=== PATIENT | male | born 1950 | race Caucasian/White ===

== ENCOUNTER 2018-08-28 08:39 | Inpatient (IN) | payer MEDICARE, OTHER ==
[~2018-08-28] VITALS: Ht 172.7 cm; Wt 75.0 kg
[2018-08-28] VITALS (7 sets, daily range): BP systolic 163–187; BP diastolic 93–114; PULSE 81–131; RESP 17–20; Ht 172.7 cm; Wt 75.0 kg
--- NOTE | 2018-08-28 09:25 | ERD ---
ER Documentation Chief Complaint Chief Complaint had a choking episode now better 02 sat 97% HPI 68-year-old gentleman with a history of chronic encephalopathy presents from board and care after having a choking episode. The patient was apparently eating a pancake prior to arrival. He had a Heimlich maneuver to completely dislodge the patient's pancake. The patient has no complaints currently however the patient's baseline speech difficulties make history extremely limited. The patient arrives with very limited information from boarding care facility. ROS Limited given verbal status Medications Home Meds Reported Medications Hydroxyzine Pamoate* (Hydroxyzine Pamoate*) 50 Mg Capsule, 50 MG PO Q6H PRN for ITCHING, #30 CAP 08/28/18 Albuterol Sulfate* (Ventolin HFA*) 18 Gm Hfa.aer.ad, 2 PUFF INHALATION Q6H PRN for WHEEZING AND SOB, #1 INHALER 08/28/18 Acetaminophen* (Acetaminophen*) 650 Mg Tablet, 650 MG PO Q6H PRN for PAIN AND OR ELEVATED TEMP, #30 TAB 08/28/18 Magnesium Hydroxide* (Milk Of Magnesia*) 400 Mg/5 Ml Oral.susp, 30 ML PO Q24H PRN for CONSTIPATION, ML 08/28/18 Trazodone Hcl* (Trazodone Hcl*) 50 Mg Tablet, 50 MG PO QHS, #30 TAB 08/28/18 Simethicone* (Mylicon* Oral Drop) 40 Mg/0.6 Ml Drops, 30 MG PO Q2HWA PRN for DISTENSION/GAS/BLOATING, EA 08/28/18 Atorvastatin Calcium* (Atorvastatin Calcium*) 20 Mg Tablet, 20 MG PO QHS, #30 TAB 08/28/18 Metformin* (Glucophage*) 500 Mg Tab, 500 MG PO BID, #60 TAB 08/28/18 Aspirin* (Aspirin* EC) 81 Mg Tablet.dr, 81 MG PO DAILY, TAB 08/28/18 Benazepril Hcl* (Benazepril Hcl*) 10 Mg Tablet, 10 MG PO DAILY, #30 TAB HOLD IF SBP<110 OR HR<60 08/28/18 Escitalopram Oxalate* (Escitalopram Oxalate*) 5 Mg Tablet, 5 MG PO DAILY, #30 TAB 08/28/18 Allergies Allergies: Coded Allergies: No Known Allergy (Unverified , 08/28/18) FmHx Family History: No diabetes Physical Exam Vitals Vital Signs Date Temp Pulse Resp B/P (MAP) Pulse Ox O2 O2 Flow FiO2 Time Delivery Rate 08/28/18 85 18 131/72 99 Room Air 13:33 (91) 08/28/18 Nasal 2 10:40 Cannula 08/28/18 97.8 90 18 151/90 95 08:49 (110) Physical Exam General: Patient is alert, interactive with speech difficulties that appear to be at baseline Head: Normocephalic, atraumatic. Eyes: Pupils equally reactive, EOM intact ENT: Moist mucous membranes, no drooling, no stridor, phonating at baseline Neck: Supple, no lymphadenopathy Respiratory: Lungs clear bilaterally, no distress Cardiovascular: RRR, no murmurs, rubs, or gallops Abdominal: Soft, non-tender, non-distended, no peritoneal signs : Deferred MSK: No edema, no unilateral swelling, 5/5 strength Neurologic: Alert and oriented, resting tremor Skin: No rash Psych: Normal mood Result Diagram: 08/28/18 1030 08/28/18 1030 Results 24 hrs Laboratory Tests Test 08/28/18 10:30 08/28/18 11:10 White Blood Count 8.3 10^3/ul Red Blood Count 4.55 10^6/ul Hemoglobin 14.6 g/dl Hematocrit 42.3 % Mean Corpuscular Volume 93.0 fl Mean Corpuscular Hemoglobin 32.1 pg Mean Corpuscular Hemoglobin Concent 34.5 g/dl Red Cell Distribution Width 13.0 % Platelet Count 190 10^3/UL Mean Platelet Volume 9.9 fl Immature Granulocytes % 0.400 % Neutrophils % 74.2 % Lymphocytes % 12.7 % Monocytes % 11.9 % Eosinophils % 0.4 % Basophils % 0.4 % Nucleated Red Blood Cells % 0.0 /100WBC Immature Granulocytes # 0.030 10^3/ul Neutrophils # 6.2 10^3/ul Lymphocytes # 1.1 10^3/ul Monocytes # 1.0 10^3/ul Eosinophils # 0.0 10^3/ul Basophils # 0.0 10^3/ul Nucleated Red Blood Cells # 0.0 10^3/ul Prothrombin Time 13.1 Sec Prothrombin Time Ratio 1.0 INR International Normalized Ratio 0.98 Activated Partial Thromboplast Time 38.8 Sec Sodium Level 137 mmol/L Potassium Level 4.4 mmol/L Chloride Level 102 mmol/L Carbon Dioxide Level 24 mmol/L Anion Gap 11 Blood Urea Nitrogen 25 mg/dl Creatinine 0.98 mg/dl Est Glomerular Filtrat Rate mL/min > 60 mL/min Glucose Level 136 mg/dl Calcium Level 9.8 mg/dl Troponin I 0.621 ng/ml Triglycerides Level 55 mg/dl Cholesterol Level 150 mg/dl LDL Cholesterol, Calculated 94 mg/dl HDL Cholesterol 45 mg/dl Cholesterol/HDL Ratio 3.3 RATIO Hemoglobin A1c 5.5 % Current Medications Medications Dose Sig/Jesse Start Time Status Last (Trade) Ordered Route PRN Stop Time Admin Dose Reason Admin Aspirin 162 mg ONCE ONCE 08/28/18 DC (Aspirin) PO 13:00 08/28/18 13:01 Ondansetron 4 mg ER BRIDGE 08/28/18 HCl (Zofran PRN IV 13:00 Inj) NAUSEA/VOMITI 08/29/18 12:59 NG 650 mg ER BRIDGE 08/28/18 Acetaminophen PRN PO 13:00 (Tylenol .MILD PAIN 08/29/18 12:59 Tab) 1-3 OR TEMP Procedures/MDM EKG, MONITORS, & DIAGNOSTIC IMAGING: CXR IMPRESSION: Mild right basilar linear atelectatic changes. 10 mm nodular opacity in the left lung base. Impacted fracture of the right humeral neck, age indeterminate. Moderate to severe degenerative changes of the left shoulder. Follow-up CT chest is recommended. CT brain: No acute process per radiologist read EKG: I reviewed and interpreted a 12-lead EKG. Rhythm: Normal sinus rhythm ST Changes: No contiguous ST segment elevations T waves: No contiguous T wave inversions Impression: [No evidence of acute cardiac ischemia] LABS: Troponin elevation MEDICAL DECISION MAKING: The patient presents after a witnessed choking episode with complete resolution and dislodgment of airway foreign body. Clinically the patient is well- appearing without signs or symptoms concerning for aspiration. Patient is oxygen saturation 97% and above. The patient has baseline neurologic and speech difficulties which appear to be unchanged. Patient will benefit from observation for 1-2 hours in the emergency room setting. No signs or symptoms concerning for aspiration pneumonitis at this time. No indication for antibiotics. If the patient remained stable safe for discharge would be appropriate. Without respiratory distress, hypoxia the patient can be safely discharged back to [facility] facility. It would be reasonable to do a bedside swallow screen on this patient given his neurologic issues. This appears to be an isolated event however. ER COURSE: * There is interval development in the history. Phone calls were made to the patient's boarding care facility to attempt to find the patient's baseline. After prolonged conversations between my charge nurse, the patient's telephonic nurse case manager and social worker clinical in the facility it appears that the patient was sent with the wrong name. There is very limited identifying information of the patient's neurologic state is such that the patient cannot identify himself. * In the end the history is somewhat more convoluted and the patient may be worse than baseline with potential apnea related to choking. The care facility cannot clearly identify the patient's baseline status. They are additionally having difficulty identifying the patient himself. For this reason, the convoluted presentation the patient is much higher risk and I believe would warrant from further workup including stroke evaluation, inpatient hospitalization and further monitoring. * Our social worker clinical has been involved. The care facility continues to go back and forth and cannot clearly identify this patient. This is a serious issue and further investigation is necessary. community services coordinator is involved. * Troponin is elevated. No chest pain no cardiac ischemia on EKG. Aspirin provided rectally. The patient failed swallow screen. Patient to be admitted for further management. CONSULTATION: [None] DISPOSITION PLAN: Telemetry admission for non-ST elevation myocardial infarction Accepting care team and consultations: I discussed the current laboratory data, diagnostic imaging and emergency care provided. Admitting team: Dr. Griffiths Admitting team indication: Insurance directed Departure Diagnosis: Primary Impression: Non-ST elevation myocardial infarction (NSTEMI) Additional Impressions: Choking episode Encephalopathy chronic Condition: Stable MEDINA BECK MD Aug 28, 2018 09:25
[2018-08-28] MEDS ORDERED: ESCI5TAB10 PO (12:15)
[2018-08-28] MEDS ORDERED: BENA10TA4 PO (12:16)
[2018-08-28] MEDS ORDERED: ASPI-817 PO (12:18)
[2018-08-28] MEDS ORDERED: METF-849 PO (12:19)
[2018-08-28] MEDS ORDERED: ATOR20TA38 PO (12:19)
[2018-08-28] MEDS ORDERED: TRAZ-111 PO (12:21)
[2018-08-28] MEDS ORDERED: SIME40DR PO (12:21)
[2018-08-28] MEDS ORDERED: ACET-2047 PO (12:22)
[2018-08-28] MEDS ORDERED: MAGN400O19 PO (12:22)
[2018-08-28] MEDS ORDERED: ALBU18HF INHALATION (12:23)
[2018-08-28] MEDS ORDERED: HYDR50CA2 PO (12:24)
[2018-08-28] MEDS ORDERED: ASPIRIN 81 MG TAB PO ONE (13:00)
[2018-08-28] MEDS ORDERED: ACETAMINOPHEN 325 MG TAB PO PRN (13:00)
[2018-08-28] MEDS ORDERED: ONDANSETRON 4 MG INJ IV PRN (13:00)
--- NOTE | 2018-08-28 13:55 | HP ---
Date/Time of Note Date/Time of Note DATE: 08/28/18 TIME: 13:48 Assessment/Plan VTE Prophylaxis SCD applied (from Nsg): Yes Pharmacological prophylaxis: heparin Lines/Catheters IV Catheter Type (from Nrsg): Saline Lock Assessment/Plan Hospital Course 68 yo male with schizophrenia and COPD who presents for unclear reasons, seems h dominic was kicked out of his boarding care facility and then had a choking fit for which EMS was called. He is slightly hypoxic with diffuse wheezing on exam suggestive of COPD exacerbation Acute COPD exacerbation awith mild hypoxia: - Will give short coarse of steroids and give bronchodilators Chronic vs acute encephelopathy: - Unclear mental baseline. Presentation could be consistent with methamph etamine perhaps, await U tox - Monitor mental status. Hopefully can provide better history tomorrow NSTEMI: - This seems like a type II CT, no chest pain and EKG is not consistent with acute ischemia - Will trend troponins and check echocardiogram Schizophrenia: - Seroquel 50 mg BID Discharge plan per case management when stable Result Diagram: 08/28/18 1030 08/28/18 1030 Results 24hrs Laboratory Tests Test 08/28/18 10:30 08/28/18 11:10 White Blood Count 8.3 Red Blood Count 4.55 L Hemoglobin 14.6 Hematocrit 42.3 Mean Corpuscular Volume 93.0 Mean Corpuscular Hemoglobin 32.1 Mean Corpuscular Hemoglobin Concent 34.5 Red Cell Distribution Width 13.0 Platelet Count 190 Mean Platelet Volume 9.9 Immature Granulocytes % 0.400 Neutrophils % 74.2 Lymphocytes % 12.7 L Monocytes % 11.9 H Eosinophils % 0.4 Basophils % 0.4 Nucleated Red Blood Cells % 0.0 Immature Granulocytes # 0.030 Neutrophils # 6.2 Lymphocytes # 1.1 Monocytes # 1.0 H Eosinophils # 0.0 Basophils # 0.0 Nucleated Red Blood Cells # 0.0 Prothrombin Time 13.1 Prothrombin Time Ratio 1.0 INR International Normalized Ratio 0.98 Activated Partial Thromboplast Time 38.8 H Sodium Level 137 Potassium Level 4.4 Chloride Level 102 Carbon Dioxide Level 24 Anion Gap 11 Blood Urea Nitrogen 25 H Creatinine 0.98 Est Glomerular Filtrat Rate mL/min > 60 Glucose Level 136 Calcium Level 9.8 Troponin I 0.621 *H Triglycerides Level 55 Cholesterol Level 150 LDL Cholesterol, Calculated 94 HDL Cholesterol 45 Cholesterol/HDL Ratio 3.3 Hemoglobin A1c 5.5 HPI/ROS Admit Date/Time Admit Date/Time Hx of Present Illness 68 yo male with ho schizophrenia and COPD who presents for unclear reasons Patient with dysarthria and very difficult to understand. From what I am able to hear he says he was in a skilled nursing who kicked him out today for taking "his pills" which he says was seroquel. From documentation provided, he was outside of the facility and had a choking fit so EMS was called. The patient de nies chocking and has no chest pain. He does say he feel short of breath from his emphysema ROS Constitutional: no complaints, improved Eyes: no complaints ENT: no complaints Respiratory: no complaints Cardiovascular: no complaints Gastrointestinal: no complaints Genitourinary: no complaints Musculoskeletal: no complaints Skin: no complaints Neurologic: no complaints Endocrine: no complaints Lymphatic: no complaints Psychological: no complaints, nl mood/affect Immunologic: no complaints PMH/Family/Social Past Medical History COPD Medications Current Medications Ondansetron HCl (Zofran Inj) 4 mg ER BRIDGE PRN IV NAUSEA/VOMITING; Start 08/28/18 at 13:00; Stop 08/29/18 at 12:59 Acetaminophen (Tylenol Tab) 650 mg ER BRIDGE PRN PO .MILD PAIN 1-3 OR TEMP; Start 08/28/18 at 13:00; Stop 08/29/18 at 12:59 Coded Allergies: No Known Allergy (Unverified , 08/28/18) Past Surgical History Past Surgical Hx: no surgical history Family History Significant Family History: no pertinent family hx Social History Alcohol Use: none Smoking Status: Unknown if ever smoked Drug Use: none Exam/Review of Systems Vital Signs Vitals Vital Signs Date Temp Pulse Resp B/P (MAP) Pulse Ox O2 O2 Flow FiO2 Time Delivery Rate 08/28/18 85 18 131/72 99 Room Air 13:33 (91) 08/28/18 2 10:40 08/28/18 97.8 08:49 Exam Exam Alert Dysarthric Odd behavior Slightly agitated Tachy, regular Lungs with wheezing bilaterally Neck veins flat Abdomen soft nt nd Ext warm wihtout LASHAWN Leiva MD Aug 28, 2018 13:55
[2018-08-28] MEDS ORDERED: NACL 0.9% 3 ML SYG IV SCH (14:00)
[2018-08-28] MEDS ORDERED: DIAZEPAM 5 MG TAB PO ONE (14:00)
[2018-08-28] MEDS ORDERED: ASPIRIN 300 MG SUPP PR ONE (14:00)
[2018-08-28] MEDS: QUETIAPINE 25 MG TAB NGT SCH ×2 (16:24→22:53)
[2018-08-28] MEDS: predniSONE 20 MG TAB PO SCH (16:25)
--- NOTE | 2018-08-28 17:51 | RADRPT ---
Echocardiogram Report Patient Name: KEITH ARREDONDOPatient ID: [id number] : 1950 (68y 2m)Study Date: 08/28/2018 2:10:35 PM Gender: MAccession #: [id number] Tech: LILIA Location: Ref.Physician: LASHAWN LOPEZ Height(Cm): BSA: Weight(Kg): Quality: GoodAccount #: Procedures: Echocardiographic Report: Transthoracic echocardiogram with complete 2D, M-Mode, and doppler examination. Indications: ACS. Measurements: 2D/M Mode Doppler Measurement Value Normal Range Measurement Value Normal Range LVIDd 2D 4.5 [ 4.2 - 5.8 ] cm MIKEY VTI 2.6 [ 2.0 - 4.0 ] cm2 LVIDs 2D 3.2 [ 2.5 - 4.0 ] cm AV Mean Esdras 0.9 [ 70.0 - 90.0 ] cm/sec LVPWd 2D 1.1 [ 0.6 - 1.0 ] cm AV Mean PG 4.0 [ 2.0 - 4.0 ] mmHg IVSd 2D 1.1 [ 0.6 - 1.0 ] cm AV VTI 22.9 cm EDV 2D 93.9 [ 62.0 - 150.0 ] ml LVOT Mean Esdras 0.6 [ 60.0 - 80.0 ] cm/sec ESV 2D 41.6 [ 21.0 - 61.0 ] ml LVOT Mean PG 2.0 [ 1.0 - 3.0 ] mmHg EF 2D 55.7 [ 52.0 - 72.0 ] percent LVOT Peak Esdras 0.9 [ 70.0 - 110.0 ] cm/sec LVOT Diam 2.1 [ 2.3 - 2.9 ] cm LVOT Peak PG 3.0 [ 2.0 - 6.0 ] mmHg LVOT VTI 17.1 [ 20.0 - 30.0 ] cm MV E Peak Esdras 0.5 [ 60.0 - 130.0 ] cm/sec MV A Peak Esdras 1.0 [ 100.0 - 120.0 ] cm/sec MV E/A 0.6 [ 0.8 - 1.5 ] ratio MV Decel Time 239 [ 104 - 258 ] msec Lat E` Esdras 0.1 [ 10.0 - 15.0 ] cm/sec Lateral E/E` 8.5 [ 1.0 - 2.0 ] ratio Med E` Esdras 0.1 cm/sec MV E/A 0.6 [ 0.8 - 1.5 ] ratio TR Peak Esdras 2.1 [ 100.0 - 280.0 ] cm/sec TR Peak PG 17.0 mmHg PV Peak Esdras 0.6 [ 40.0 - 80.0 ] cm/sec PV Peak PG 2.0 mmHg Findings: Left Ventricle: Normal left ventricular systolic function. Normal left ventricular cavity size. Normal left ventricular wall thickness. Ejection fraction is visually estimated at 55 %. Tissue Doppler/Mitral Doppler indices are consistent with impaired relaxation (Stage I diastolic dysfunction). Right Ventricle: Normal right ventricular size. Normal right ventricular systolic function. Left Atrium: There is mild enlargement of left atrium. Right Atrium: The right atrium is normal in size. Atrial Septum: Normal atrial septum. Mitral Valve: Normal appearance and function of the mitral valve with trace physiologic regurgitation. Aortic Valve: Normal appearance of the aortic valve. No significant aortic stenosis or insufficiency. Tricuspid Valve: Normal appearance and function of the tricuspid valve with trace physiologic regurgitation. Pulmonic Valve: Pulmonic valve not well visualized. No evidence of pulmonic regurgitation. Pericardium: Normal pericardium with no significant pericardial effusion. Aorta: Normal aortic root. IVC: Normal size and normal respiratory collapse consistent with normal right atrial pressure. Conclusions: Normal left ventricular systolic function. Normal left ventricular cavity size. Normal left ventricular wall thickness. Ejection fraction is visually estimated at 55 %. Tissue Doppler/Mitral Doppler indices are consistent with impaired relaxation (Stage I diastolic dysfunction). There is mild enlargement of left atrium. Normal appearance and function of the mitral valve with trace physiologic regurgitation. Normal appearance and function of the tricuspid valve with trace physiologic regurgitation. Electronically Signed By: Andrew Son 2018-08-28 17:50:46 PDT
[2018-08-28] MEDS: ALBUTEROL/IPRATROPIUM (NEB) 3 ML AMP HHN SCH (20:47)
[2018-08-28] MEDS: LORAZEPAM 2 MG INJ IV PRN (23:39)
[2018-08-29] VITALS (12 sets, daily range): BP systolic 143–183; BP diastolic 88–110; PULSE 86–117; RESP 18–20
[2018-08-29] MEDS: ALBUTEROL/IPRATROPIUM (NEB) 3 ML AMP HHN SCH ×6 (01:24→20:28)
[2018-08-29] MEDS: predniSONE 20 MG TAB PO SCH (08:20)
[2018-08-29] MEDS: QUETIAPINE 25 MG TAB NGT SCH (08:20)
[2018-08-29] MEDS: ENOXAPARIN 30 MG/0.3 ML SYG SC SCH (08:21)
[2018-08-29] MEDS ORDERED: ASPIRIN 81 MG TAB PO SCH (09:00)
--- NOTE | 2018-08-29 10:01 | PSY ---
Date/Time of Note Date/Time of Note DATE: 08/29/18 TIME: 09:40 Psychiatric Subjective Eval Subjective Evaluation Chief Complaint: had a choking episode now better 02 sat 97% History of present illness Patient is 68 year male with underlying history of COPD who is currently on the telemetry unit for increased troponin level. On a [id number] evaluation, patient is very agitated he is increasingly anxious states he wants to have a conversation with the TV patient has poor impulse control poor coping skills he gets easily frustrated and irritable. He is very uncooperative and intrusive. Explained risk and benefits of medication the patient is resistive with care, but takes medication Past psychiatric history Long history of mental illness and hospitalization Hospitalization: other Medical history Problems Medical Problems: (1) Choking episode Status: Acute (2) Encephalopathy chronic Status: Acute (3) Non-ST elevation myocardial infarction (NSTEMI) Status: Acute Allergies: Coded Allergies: No Known Allergy (Unverified , 08/28/18) Substance Abuse Substance abuse history: Yes (And states he has tried every street drug on on the face of the heads) Prior substance abuse treatmen: Yes Social History Marital status: single DPA/Conservatorship: No Psychiatric Objective Eval Review of Systems: Review of Systems: Not Applicable Physical Examination: Physical Examination: Not Applicable Appetite: Adequate Energy: Adequate Interest: Adequate Mental Status Examination: Appearance: Poor Hygiene, Disheveled Eye Contact: Fair Psychomotor Activity: Agitated Behavior: Agitated Speech: Slurred AFFECT: Libile Mood: Irritable Though Process: Tangential Thought Content: Hallucinations (Visual hallucinations) Orientation: x3 Insight: Severe Judgement: Severe Attention Span: Distractible Laboratory Results Laboratory Tests Test 08/28/18 10:30 08/28/18 11:10 08/28/18 16:14 08/29/18 05:49 White Blood Count 8.3 10^3/ul 10.0 10^3/ul Red Blood Count 4.55 10^6/ul 4.48 10^6/ul Hemoglobin 14.6 g/dl 14.3 g/dl Hematocrit 42.3 % 42.5 % Mean Corpuscular 93.0 fl 94.9 fl Volume Mean Corpuscular 32.1 pg 31.9 pg Hemoglobin Mean Corpuscular 34.5 g/dl 33.6 g/dl Hemoglobin Concent Red Cell 13.0 % 13.0 % Distribution Width Platelet Count 190 10^3/UL 225 10^3/UL Mean Platelet 9.9 fl 10.3 fl Volume Immature 0.400 % 0.500 % Granulocytes % Neutrophils % 74.2 % 78.5 % Lymphocytes % 12.7 % 12.4 % Monocytes % 11.9 % 8.4 % Eosinophils % 0.4 % 0.0 % Basophils % 0.4 % 0.2 % Nucleated Red 0.0 /100WBC 0.0 /100WBC Blood Cells % Immature 0.030 10^3/ul 0.050 10^3/ul Granulocytes # Neutrophils # 6.2 10^3/ul 7.9 10^3/ul Lymphocytes # 1.1 10^3/ul 1.2 10^3/ul Monocytes # 1.0 10^3/ul 0.8 10^3/ul Eosinophils # 0.0 10^3/ul 0.0 10^3/ul Basophils # 0.0 10^3/ul 0.0 10^3/ul Nucleated Red 0.0 10^3/ul 0.0 10^3/ul Blood Cells # Prothrombin Time 13.1 Sec Prothrombin Time 1.0 Ratio INR International 0.98 Normalized Ratio Activated 38.[address] Time Sodium Level 137 mmol/L 143 mmol/L Potassium Level 4.4 mmol/L 4.1 mmol/L Chloride Level 102 mmol/L 106 mmol/L Carbon Dioxide 24 mmol/L 24 mmol/L Level Anion Gap 11 13 Blood Urea 25 mg/dl 17 mg/dl Nitrogen Creatinine 0.98 mg/dl 0.79 mg/dl Est Glomerular > 60 mL/min > 60 mL/min Filtrat Rate mL/min Glucose Level 136 mg/dl 107 mg/dl Calcium Level 9.8 mg/dl 10.1 mg/dl Troponin I 0.621 ng/ml 0.667 ng/ml 0.603 ng/ml Triglycerides 55 mg/dl Level Cholesterol Level 150 mg/dl LDL Cholesterol, 94 mg/dl Calculated HDL Cholesterol 45 mg/dl Cholesterol/HDL 3.3 RATIO Ratio Hemoglobin A1c 5.5 % 5.5 % Total Bilirubin 0.5 mg/dl Direct Bilirubin 0.00 mg/dl Indirect Bilirubin 0.5 mg/dl Aspartate Amino 28 IU/L Transf (AST/SGOT) Alanine 22 IU/L Aminotransferase ( ALT/SGPT) Alkaline 109 IU/L Phosphatase Total Protein 7.4 g/dl Albumin 4.1 g/dl Globulin 3.30 g/dl Albumin/Globulin 1.24 Ratio Assessment and Plan Assessment/Diagnosis Diagnosis Schizophrenia unspecified Recommendation/Plan Medication Management Seroquel 50 mg daily and 100 at bedtime Multiple antipsychotics: No Discharge Disposition: Other Legal Status: Voluntary (Patient does not meet criteria for 5150 hold. He is currently taking medications) AUBREY PAUL NP Aug 29, 2018 09:54
[2018-08-29] MEDS: QUETIAPINE 25 MG TAB PO SCH (10:24)
[2018-08-29] MEDS: LORAZEPAM 2 MG INJ IV PRN (16:02)
--- NOTE | 2018-08-29 16:43 | PN ---
Date/Time of Note Date/Time of Note DATE: 08/29/18 TIME: 16:36 Assessment/Plan VTE Prophylaxis Risk score (from Ns)>0 risk: 3 SCD applied (from Ns): No SCD contraindicated: other (no) Pharmacological prophylaxis: LMWH Lines/Catheters IV C[facility]ter Type (from [facility]): Peripheral IV Assessment/Plan Assessment/Plan 68 yo male with schizophrenia and COPD who presents after reportedly taking 8 seroquel tablets, seems he was kicked out of his boarding care facility and then had a choking fit for which EMS was called. On admission he also was slightly hypoxic with diffuse wheezing on exam suggestive of COPD exacerbation #Acute COPD exacerbation with mild hypoxia: - Will give short coarse of steroids and give bronchodilators #Seroquel overdose - He reports taking 8 seroquel tablets at time of admission. - To me he denies SI/HI, but will consult Ese just in case. #Chronic vs acute encephelopathy: - U tox negative. Patient reports no illicit drugs for past six months - May have been due to seroquel overdose. - Now mentating wwell #Elevated troponins - This seems like a type II [place], no chest pain and EKG is not consistent with acute ischemia - Will trend troponins #Schizophrenia: - Seroquel 50 mg BID Discharge plan per case management when stable Result Diagram: 08/29/18 0549 08/29/18 0549 Subjective 24 Hr Interval Summary Free Text/Dictation No acute overnight events. Patient sitting in chair, well appearing, breathing room air today. He reports anxiety and feeling that he couldn't sleep yesterday; so took 8 seroquel tablets. Likely that is the reason for admission. Exam/Review of Systems Exam Vitals Vital Signs Date Temp Pulse Resp B/P (MAP) Pulse Ox O2 O2 Flow FiO2 Time Delivery Rate 08/29/18 98 158/101 16:06 (120) 08/29/18 98.3 18 92 15:50 08/29/18 Room Air 11:58 08/29/18 21 05:01 08/28/18 2 10:40 Intake and Output 08/28/18 08/28/18 08/29/18 1515:00 23:00 07:00 IntakeIntake Total 1500 ml OutputOutput Total 1250 ml BalanceBalance 250 ml Exam GENERAL: Well developed man sitting in chair, communicative with no distress. HEENT: Moist mucous membranes. Pupils equal and reactive to light. CARDIAC: S1, S2, no added sounds or murmurs. CHEST: Clear to auscultation bilaterally ABDOMEN: Soft, nontender. No guarding or rebound. EXTREMITIES: No cyanosis, clubbing.Trace edema. Skin: warm, dry, well perfused. Results Results 24hrs Laboratory Tests Test 08/29/18 05:49 White Blood Count 10.0 # Red Blood Count 4.48 L Hemoglobin 14.3 Hematocrit 42.5 Mean Corpuscular Volume 94.9 Mean Corpuscular Hemoglobin 31.9 Mean Corpuscular Hemoglobin Concent 33.6 Red Cell Distribution Width 13.0 Platelet Count 225 Mean Platelet Volume 10.3 Immature Granulocytes % 0.500 H Neutrophils % 78.5 H Lymphocytes % 12.4 L Monocytes % 8.4 Eosinophils % 0.0 Basophils % 0.2 Nucleated Red Blood Cells % 0.0 Immature Granulocytes # 0.050 H Neutrophils # 7.9 H Lymphocytes # 1.2 Monocytes # 0.8 Eosinophils # 0.0 Basophils # 0.0 Nucleated Red Blood Cells # 0.0 Sodium Level 143 Potassium Level 4.1 Chloride Level 106 Carbon Dioxide Level 24 Anion Gap 13 Blood Urea Nitrogen 17 Creatinine 0.79 Est Glomerular Filtrat Rate mL/min > 60 Glucose Level 107 Hemoglobin A1c 5.5 Calcium Level 10.1 Total Bilirubin 0.5 Direct Bilirubin 0.00 Indirect Bilirubin 0.5 Aspartate Amino Transf (AST/SGOT) 28 Alanine Aminotransferase (ALT/SGPT) 22 Alkaline Phosphatase 109 Troponin I 0.603 *H Total Protein 7.4 Albumin 4.1 Globulin 3.30 H Albumin/Globulin Ratio 1.24 Medications Medication Current Medications IV Flush (NS 3 ml) 3 ml PER PROTOCOL IV ; Start 08/28/18 at 14:00 Acetaminophen/ Hydrocodone Bitart ([place] (5/325)) 2 tab Q6H PRN PO .SEVERE PAIN 7-10; Start 08/28/18 at 14:00 Enoxaparin Sodium (Lovenox) 30 mg DAILY SC Last administered on 08/29/18at 08:21; Admin Dose 30 MG; Start 08/29/18 at 09:00 Prednisone (Prednisone) 40 mg DAILY PO Last administered on 08/29/18at 08:20; Ad min Dose 40 MG; Start 08/28/18 at 14:00 Albuterol/ Ipratropium (Duoneb) 3 ml Q4H RESP THERAPY HHN Last administered on 08/29/18at 05:01; Admin Dose 3 ML; Start 08/28/18 at 17:00 Aspirin (Aspirin) 81 mg DAILY PO Last administered on 08/29/18at 08:20; Admin Dose 81 MG; Start 08/29/18 at 09:00 Lorazepam (Ativan) 1 mg Q8H PRN IV agitation Last administered on 08/29/18at 16:02; Admin Dose 1 MG; Start 08/28/18 at 16:30 Quetiapine Fumarate (Seroquel) 50 mg DAILY PO Last administered on 08/29/18at 10:24; Admin Dose 50 MG; Start 08/29/18 at 10:00 Quetiapine Fumarate (Seroquel) 100 mg HS PO ; Start 08/29/18 at 21:00 GILBERTO RIVAS MD Aug 29, 2018 16:43
[2018-08-29] MEDS ORDERED: MAGNESIUM HYDROXIDE 30ML CUP PO PRN (17:00)
[2018-08-29] MEDS ORDERED: ALBUTEROL HFA 8 GM INHALER INH PRN (17:00)
[2018-08-29] MEDS ORDERED: hydrOXYzine PAMOATE 25 MG CAP PO PRN (18:30)
[2018-08-29] MEDS: traZODone 50 MG TAB PO SCH (20:43)
[2018-08-29] MEDS: QUETIAPINE 100 MG TAB PO SCH (20:43)
[2018-08-29] MEDS: ATORVASTATIN 20 MG TAB PO SCH (20:43)
[2018-08-29] MEDS ORDERED: QUETIAPINE 25 MG TAB PO SCH (21:00)
[2018-08-30] VITALS (12 sets, daily range): BP systolic 120–167; BP diastolic 71–101; PULSE 85–110; RESP 18–20
[2018-08-30] MEDS: LORAZEPAM 2 MG INJ IV PRN ×2 (00:21→13:23)
[2018-08-30] MEDS: ALBUTEROL/IPRATROPIUM (NEB) 3 ML AMP HHN SCH ×6 (00:23→20:14)
[2018-08-30] MEDS ORDERED: HALOPERIDOL 5 MG INJ IM ONE (01:30)
[2018-08-30] MEDS ORDERED: DIPHENHYDRAMINE 50 MG INJ IV ONE (01:32)
[2018-08-30] MEDS ORDERED: LORAZEPAM 2 MG INJ IV ONE (01:33)
[2018-08-30] MEDS ORDERED: DIPHENHYDRAMINE 50 MG INJ ONE (01:35)
[2018-08-30] MEDS: ESCITALOPRAM 10 MG TAB PO SCH (08:44)
[2018-08-30] MEDS: predniSONE 20 MG TAB PO SCH (08:44)
[2018-08-30] MEDS: ASPIRIN (EC) 81 MG TAB PO SCH (08:44)
[2018-08-30] MEDS: QUETIAPINE 25 MG TAB PO SCH (08:44)
[2018-08-30] MEDS: BENAZEPRIL 10 MG TAB PO SCH (08:45)
[2018-08-30] MEDS: ENOXAPARIN 30 MG/0.3 ML SYG SC SCH (08:48)
--- NOTE | 2018-08-30 13:50 | PN ---
Date/Time of Note Date/Time of Note DATE: 08/30/18 TIME: 13:48 Assessment/Plan VTE Prophylaxis Risk score (from Ns)>0 risk: 3 SCD applied (from Ns): No SCD contraindicated: other (no) Pharmacological prophylaxis: LMWH Lines/Catheters IV Catheter Type (from [facility]): Saline Lock Assessment/Plan Assessment/Plan 68 yo male with schizophrenia and COPD who presents after reportedly taking 8 seroquel tablets, seems he was kicked out of his boarding care facility and then had a choking fit for which EMS was called. On admission he also was slightly hypoxic with diffuse wheezing on exam suggestive of COPD exacerbation #Acute COPD exacerbation with mild hypoxia: - Will give short coarse of steroids and give bronchodilators #Seroquel overdose - He reports taking 8 seroquel tablets at time of admission. - To me he denies SI/HI - [place] by Ese[place] no 5150 needed. #Chronic vs acute encephelopathy: - U tox negative. Patient reports no illicit drugs for past six months - May have been due to seroquel overdose. - Now mentating well #Elevated troponins - This seems like a type II [place], no chest pain and EKG is not consistent with acute ischemia - Will trend troponin - Will consult cardiology #Schizophrenia: - Seroquel 50 mg BID Discharge plan per case management when stable Result Diagram: 08/30/18 0548 08/30/18 0548 Subjective 24 Hr Interval Summary Free Text/Dictation No acute overnight events. On my exam patient sleeping comfortably. Apparently has intermittent episodes of agitation requiring IV Ativan. This afternoon went tachy to 150s, very briefly. Exam/Review of Systems Exam Vitals Vital Signs Date Temp Pulse Resp B/P (MAP) Pulse Ox O2 O2 Flow FiO2 Time Delivery Rate 08/30/18 106 18 95 Nasal 2.0 12:57 Cannula 08/30/18 98.4 120/71 12:05 (87) 08/30/18 21 04:45 Intake and Output 08/29/18 08/29/18 08/30/18 1515:00 23:00 07:00 IntakeIntake Total 1140 ml 500 ml OutputOutput Total 900 ml 650 ml BalanceBalance 240 ml -150 ml Exam GENERAL: Well developed man lying in bed sleeping comfortably HEENT: Moist mucous membranes. Pupils equal and reactive to light. CARDIAC: S1, S2, no added sounds or murmurs. CHEST: Clear to auscultation bilaterally ABDOMEN: Soft, nontender. No guarding or rebound. EXTREMITIES: No cyanosis, clubbing.Trace edema. Skin: warm, dry, well perfused. Results Results 24hrs Laboratory Tests Test 08/30/18 05:48 White Blood Count 12.4 #H Red Blood Count 4.54 L Hemoglobin 14.4 Hematocrit 43.2 Mean Corpuscular Volume 95.2 Mean Corpuscular Hemoglobin 31.7 Mean Corpuscular Hemoglobin Concent 33.3 Red Cell Distribution Width 13.2 Platelet Count 183 Mean Platelet Volume 11.4 H Immature Granulocytes % 0.300 Neutrophils % 57.9 Lymphocytes % 29.9 Monocytes % 10.6 Eosinophils % 0.7 Basophils % 0.6 Nucleated Red Blood Cells % 0.0 Immature Granulocytes # 0.040 H Neutrophils # 7.2 Lymphocytes # 3.7 H Monocytes # 1.3 H Eosinophils # 0.1 Basophils # 0.1 Nucleated Red Blood Cells # 0.0 Sodium Level 139 Potassium Level 3.6 Chloride Level 103 Carbon Dioxide Level 29 Anion Gap 7 Blood Urea Nitrogen 16 Creatinine 0.74 Est Glomerular Filtrat Rate mL/min > 60 Glucose Level 92 Calcium Level 9.6 Phosphorus Level 3.9 Magnesium Level 2.0 Total Bilirubin 0.5 Direct Bilirubin 0.00 Indirect Bilirubin 0.5 Aspartate Amino Transf (AST/SGOT) 26 Alanine Aminotransferase (ALT/SGPT) 20 Alkaline Phosphatase 94 Troponin I 0.517 *H Total Protein 7.4 Albumin 3.9 Globulin 3.50 H Albumin/Globulin Ratio 1.11 Medications Medication Current Medications IV Flush (NS 3 ml) 3 ml PER PROTOCOL IV ; Start 08/28/18 at 14:00 Acetaminophen/ Hydrocodone Bitart ([place] (5/325)) 2 tab Q6H PRN PO .SEVERE PAIN 7-10; Start 08/28/18 at 14:00 Enoxaparin Sodium (Lovenox) 30 mg DAILY SC Last administered on 08/30/18at 08:48; Admin Dose 30 MG; Start 08/29/18 at 09:00 Prednisone (Prednisone) 40 mg DAILY PO Last administered on 08/30/18at 08:44; Admin Dose 40 MG; Start 08/28/18 at 14:00 Albuterol/ Ipratropium (Duoneb) 3 ml Q4H RESP THERAPY HHN Last administered on 08/30/18 12:55; Admin Dose 3 ML; Start 08/28/18 at 17:00 Lorazepam (Ativan) 1 mg Q8H PRN IV agitation Last administered on 08/30/18 13:23; Admin Dose 1 MG; Start 08/28/18 at 16:30 Quetiapine Fumarate (Seroquel) 50 mg DAILY PO Last administered on 08/30/18 08:44; Admin Dose 50 MG; Start 08/29/18 at 10:00 Quetiapine Fumarate (Seroquel) 100 mg HS PO Last administered on 08/29/18 20:43; Admin Dose 100 MG; Start 08/29/18 at 21:00 Albuterol (Ventolin Hfa) 2 puff Q6H PRN INH WHEEZING AND SOB; Start 08/29/18 at 17:00 Aspirin (Halfprin) 81 mg DAILY PO Last administered on 08/30/18 08:44; Admin Dose 81 MG; Start 08/30/18 at 09:00 Atorvastatin Calcium (Lipitor) 20 mg QHS PO Last administered on 08/29/18 20:43; Admin Dose 20 MG; Start 08/29/18 at 21:00 Benazepril HCl (Lotensin) 10 mg DAILY PO Last administered on 08/30/18 08:45; Admin Dose 10 MG; Start 08/30/18 at 09:00 Escitalopram Oxalate (Lexapro) 5 mg DAILY PO Last administered on 08/30/18 08:44; Admin Dose 5 MG; Start 08/30/18 at 09:00 Magnesium Hydroxide (Milk Of Mag) 30 ml Q24H PRN PO CONSTIPATION; Start 08/29/18 at 17:00 Trazodone HCl (Desyrel) 50 mg QHS PO Last administered on 08/29/18 20:43; Admin Dose 50 MG; Start 08/29/18 at 21:00 Hydroxyzine Pamoate (Vistaril) 50 mg Q6H PRN PO ITCHING; Start 08/29/18 at 18:30 GILBERTO RIVAS MD Aug 30, 2018 13:50
--- NOTE | 2018-08-30 16:58 | CONS ---
Assessment/Plan Assessment/Plan Hospital Course (Demo Recall) Assessment: Mild troponin elevation - clinical history does not suggest acute coronary syndrome, ? type 2 NSTEMI vs chronic elevation of unclear significane Chronic obstructive pulmonary disease exacerbation - appears to be improving on steroids and bronchodilators Schizophrenia Incomplete data Recommendations: -echocardiogram reported normal LVEF 55% -defer additional cardiac work up at this time given patient's uncertain social situation and compliance -continue aspirin 81mg daily Consultation Date/Type/Reason Admit Date/Time Type of Consult Cardiology Reason for Consultation elevated troponin Date/Time of Note DATE: 08/30/18 TIME: 16:48 Hx of Present Illness The patient is a 68 year-old male who presented reportedly presented from his [facility] and [facility] after a choking fit per medical records. The patient's speech is very difficult to understand and additional information is difficult to obtain. He was thought to have a chronic obstructive pulmonary disease exacerbation and is being treated with steroids and bronchodilators. EKG showed sinus rhythm with nonspecific ST segment changes. Troponins appear to be chronically elevated at 0.5 to 0.6 since admission. The patient denies any chest pain. Unable to obtain review of system, patient's speech is difficult to understand. Past Medical History Chronic obstructive pulmonary disease Schizophrenia Incomplete data Home Meds Reported Medications Hydroxyzine Pamoate* (Hydroxyzine Pamoate*) 50 Mg Capsule, 50 MG PO Q6H PRN for ITCHING, #30 CAP 08/28/18 Albuterol Sulfate* (Ventolin HFA*) 18 Gm Hfa.aer.ad, 2 PUFF INHALATION Q6H PRN for WHEEZING AND SOB, #1 INHALER 08/28/18 Acetaminophen* (Acetaminophen*) 650 Mg Tablet, 650 MG PO Q6H PRN for PAIN AND OR ELEVATED TEMP, #30 TAB 08/28/18 Magnesium Hydroxide* (Milk Of Magnesia*) 400 Mg/5 Ml Oral.susp, 30 ML PO Q24H SD N for CONSTIPATION, ML 08/28/18 Trazodone Hcl* (Trazodone Hcl*) 50 Mg Tablet, 50 MG PO QHS, #30 TAB 08/28/18 Simethicone* (Mylicon* Oral Drop) 40 Mg/0.6 Ml Drops, 30 MG PO Q2HWA PRN for DISTENSION/GAS/BLOATING, EA 08/28/18 Atorvastatin Calcium* (Atorvastatin Calcium*) 20 Mg Tablet, 20 MG PO QHS, #30 TAB 08/28/18 Metformin* (Glucophage*) 500 Mg Tab, 500 MG PO BID, #60 TAB 08/28/18 Aspirin* (Aspirin* EC) 81 Mg Tablet.dr, 81 MG PO DAILY, TAB 08/28/18 Benazepril Hcl* (Benazepril Hcl*) 10 Mg Tablet, 10 MG PO DAILY, #30 TAB HOLD IF SBP<110 OR HR<60 08/28/18 Escitalopram Oxalate* (Escitalopram Oxalate*) 5 Mg Tablet, 5 MG PO DAILY, #30 TAB 08/28/18 Medications Current Medications IV Flush (NS 3 ml) 3 ml PER PROTOCOL IV ; Start 08/28/18 at 14:00 Acetaminophen/ Hydrocodone Bitart ([place] (5/325)) 2 tab Q6H PRN PO .SEVERE PAIN 7-10; Start 08/28/18 at 14:00 Enoxaparin Sodium (Lovenox) 30 mg DAILY SC Last administered on 08/30/18at 08:48; Admin Dose 30 MG; Start 08/29/18 at 09:00 Prednisone (Prednisone) 40 mg DAILY PO Last administered on 08/30/18at 08:44; Admin Dose 40 MG; Start 08/28/18 at 14:00 Albuterol/ Ipratropium (Duoneb) 3 ml Q4H RESP THERAPY HHN Last administered on 08/30/18at 12:55; Admin Dose 3 ML; Start 08/28/18 at 17:00 Lorazepam (Ativan) 1 mg Q8H PRN IV agitation Last administered on 08/30/18at 13:23; Admin Dose 1 MG; Start 08/28/18 at 16:30 Quetiapine Fumarate (Seroquel) 50 mg DAILY PO Last administered on 08/30/18at 08:44; Admin Dose 50 MG; Start 08/29/18 at 10:00 Quetiapine Fumarate (Seroquel) 100 mg HS PO Last administered on 08/29/18at 20:43; Admin Dose 100 MG; Start 08/29/18 at 21:00 Albuterol (Ventolin Hfa) 2 puff Q6H PRN INH WHEEZING AND SOB; Start 08/29/18 at 17:00 Aspirin (Halfprin) 81 mg DAILY PO Last administered on 08/30/18at 08:44; Admin Dose 81 MG; Start 08/30/18 at 09:00 Atorvastatin Calcium (Lipitor) 20 mg QHS PO Last administered on 08/29/18at 20:43; Admin Dose 20 MG; Start 08/29/18 at 21:00 Benazepril HCl (Lotensin) 10 mg DAILY PO Last administered on 08/30/18at 08:45; Admin Dose 10 MG; Start 08/30/18 at 09:00 Escitalopram Oxalate (Lexapro) 5 mg DAILY PO Last administered on 08/30/18at 08:44; Admin Dose 5 MG; Start 08/30/18 at 09:00 Magnesium Hydroxide (Milk Of Mag) 30 ml Q24H PRN PO CONSTIPATION; Start 08/29/18 at 17:00 Trazodone HCl (Desyrel) 50 mg QHS PO Last administered on 08/29/18at 20:43; Admin Dose 50 MG; Start 08/29/18 at 21:00 Hydroxyzine Pamoate (Vistaril) 50 mg Q6H PRN PO ITCHING; Start 08/29/18 at 18:30 Allergies: Coded Allergies: No Known Allergy (Unverified , 08/28/18) Past Surgical History Unable to obtain Family History Significant Family History: other (unable to obtain) Social History Smoking Status: Unknown if ever smoked Exam/Review of Systems Vital Signs Vitals Vital Signs Date Temp Pulse Resp B/P (MAP) Pulse Ox O2 O2 Flow FiO2 Time Delivery Rate 08/30/18 100 16:20 08/30/18 98.7 20 146/91 97 15:19 (109) 08/30/18 Nasal 2.0 12:57 Cannula 08/30/18 21 04:45 Intake and Output 08/29/18 08/29/18 08/30/18 1515:00 23:00 07:00 IntakeIntake Total 1140 ml 500 ml OutputOutput Total 900 ml 650 ml BalanceBalance 240 ml -150 ml Exam Constitutional: alert Psych: No nl mood/affect Head: normocephalic, atraumatic Eyes: nl conjunctiva, nl lids ENMT: nl external ears & nose, nl nasal mucosa & septum Neck: supple, non-tender; No jvd Respiratory: clear to auscultation; No wheezing Cardiovascular: regular rate and rhythm Gastrointestinal: soft, non-tender Musculoskeletal: nl extremities to inspection Extremities: No cyanosis, No clubbing, No edema Neurological: No nl mental status, No nl speech Labs Result Diagram: 08/30/18 0548 08/30/18 0548 Results 24hrs Laboratory Tests Test 08/30/18 05:48 White Blood Count 12.4 #H Red Blood Count 4.54 L Hemoglobin 14.4 Hematocrit 43.2 Mean Corpuscular Volume 95.2 Mean Corpuscular Hemoglobin 31.7 Mean Corpuscular Hemoglobin Concent 33.3 Red Cell Distribution Width 13.2 Platelet Count 183 Mean Platelet Volume 11.4 H Immature Granulocytes % 0.300 Neutrophils % 57.9 Lymphocytes % 29.9 Monocytes % 10.6 Eosinophils % 0.7 Basophils % 0.6 Nucleated Red Blood Cells % 0.0 Immature Granulocytes # 0.040 H Neutrophils # 7.2 Lymphocytes # 3.7 H Monocytes # 1.3 H Eosinophils # 0.1 Basophils # 0.1 Nucleated Red Blood Cells # 0.0 Sodium Level 139 Potassium Level 3.6 Chloride Level 103 Carbon Dioxide Level 29 Anion Gap 7 Blood Urea Nitrogen 16 Creatinine 0.74 Est Glomerular Filtrat Rate mL/min > 60 Glucose Level 92 Calcium Level 9.6 Phosphorus Level 3.9 Magnesium Level 2.0 Total Bilirubin 0.5 Direct Bilirubin 0.00 Indirect Bilirubin 0.5 Aspartate Amino Transf (AST/SGOT) 26 Alanine Aminotransferase (ALT/SGPT) 20 Alkaline Phosphatase 94 Troponin I 0.517 *H Total Protein 7.4 Albumin 3.9 Globulin 3.50 H Albumin/Globulin Ratio 1.11 Medications Medications Current Medications IV Flush (NS 3 ml) 3 ml PER PROTOCOL IV ; Start 08/28/18 at 14:00 Acetaminophen/ Hydrocodone Bitart ([place] (5/325)) 2 tab Q6H PRN PO .SEVERE PAIN 7-10; Start 08/28/18 at 14:00 Enoxaparin Sodium (Lovenox) 30 mg DAILY SC Last administered on 08/30/18at 08:48; Admin Dose 30 MG; Start 08/29/18 at 09:00 Prednisone (Prednisone) 40 mg DAILY PO Last administered on 08/30/18at 08:44; Admin Dose 40 MG; Start 08/28/18 at 14:00 Albuterol/ Ipratropium (Duoneb) 3 ml Q4H RESP THERAPY HHN Last administered on 08/30/18 12:55; Admin Dose 3 ML; Start 08/28/18 at 17:00 Lorazepam (Ativan) 1 mg Q8H PRN IV agitation Last administered on 08/30/18 13:23; Admin Dose 1 MG; Start 08/28/18 at 16:30 Quetiapine Fumarate (Seroquel) 50 mg DAILY PO Last administered on 08/30/18 08:44; Admin Dose 50 MG; Start 08/29/18 at 10:00 Quetiapine Fumarate (Seroquel) 100 mg HS PO Last administered on 08/29/18 20:43; Admin Dose 100 MG; Start 08/29/18 at 21:00 Albuterol (Ventolin Hfa) 2 puff Q6H PRN INH WHEEZING AND SOB; Start 08/29/18 at 17:00 Aspirin (Halfprin) 81 mg DAILY PO Last administered on 08/30/18 08:44; Admin Dose 81 MG; Start 08/30/18 at 09:00 Atorvastatin Calcium (Lipitor) 20 mg QHS PO Last administered on 08/29/18 20:43; Admin Dose 20 MG; Start 08/29/18 at 21:00 Benazepril HCl (Lotensin) 10 mg DAILY PO Last administered on 08/30/18 08:45; Admin Dose 10 MG; Start 08/30/18 at 09:00 Escitalopram Oxalate (Lexapro) 5 mg DAILY PO Last administered on 08/30/18 08:44; Admin Dose 5 MG; Start 08/30/18 at 09:00 Magnesium Hydroxide (Milk Of Mag) 30 ml Q24H PRN PO CONSTIPATION; Start 08/29/18 at 17:00 Trazodone HCl (Desyrel) 50 mg QHS PO Last administered on 08/29/18 20:43; Admin Dose 50 MG; Start 08/29/18 at 21:00 Hydroxyzine Pamoate (Vistaril) 50 mg Q6H PRN PO ITCHING; Start 08/29/18 at 18:30 TRICIA LANDRY MD Aug 30, 2018 16:58
[2018-08-30] MEDS: QUETIAPINE 100 MG TAB PO SCH (21:21)
[2018-08-30] MEDS: traZODone 50 MG TAB PO SCH (21:21)
[2018-08-30] MEDS: ATORVASTATIN 20 MG TAB PO SCH (21:21)
[2018-08-31] VITALS (10 sets, daily range): BP systolic 92–162; BP diastolic 50–92; PULSE 84–97; RESP 19–20
[2018-08-31] MEDS: ALBUTEROL/IPRATROPIUM (NEB) 3 ML AMP HHN SCH ×6 (01:38→20:24)
[2018-08-31] MEDS: BENAZEPRIL 10 MG TAB PO SCH (08:23)
[2018-08-31] MEDS: QUETIAPINE 25 MG TAB PO SCH (08:23)
[2018-08-31] MEDS: ESCITALOPRAM 10 MG TAB PO SCH (08:23)
[2018-08-31] MEDS: ASPIRIN (EC) 81 MG TAB PO SCH (08:23)
[2018-08-31] MEDS: predniSONE 20 MG TAB PO SCH (08:23)
[2018-08-31] MEDS: ENOXAPARIN 30 MG/0.3 ML SYG SC SCH (08:31)
--- NOTE | 2018-08-31 13:35 | PN ---
Date/Time of Note Date/Time of Note DATE: 08/31/18 TIME: 13:34 Assessment/Plan VTE Prophylaxis Risk score (from Nsg)>0 risk: 3 SCD applied (from Nsg): Yes Pharmacological prophylaxis: heparin Lines/Catheters IV Catheter Type (from Nrsg): Saline Lock Assessment/Plan Hospital Course 68 yo male with schizophrenia and COPD who presents for unclear reasons, seems he was kicked out of his boarding care facility and then had a choking fit for which EMS was called. He is slightly hypoxic with diffuse wheezing on exam suggestive of COPD exacerbation Acute COPD exacerbation awith mild hypoxia: - Will give short coarse of steroids and give bronchodilators Chronic vs acute encephelopathy: - Unclear mental baseline. Presentation could be consistent with methamphetamine perhaps, await U tox - Monitor mental status. Hopefully can provide better history tomorrow NSTEMI: - This seems like a type II [place], no chest pain and EKG is not consistent with acute ischemia Schizophrenia: - Seroquel 50 mg QAM, 100 QPM Discharge plan per case management Result Diagram: 08/30/18 0548 08/30/18 0548 Subjective 24 Hr Interval Summary Free Text/Dictation Respiratory status is improved He denies complaints Exam/Review of Systems Exam Vitals Vital Signs Date Temp Pulse Resp B/P (MAP) Pulse Ox O2 O2 Flow FiO2 Time Delivery Rate 08/31/18 100 18 93 21 13:10 08/31/18 98.8 110/72 Room Air 11:40 (85) 08/31/18 2.0 08:32 Intake and Output 08/30/18 08/30/18 08/31/18 1515:00 23:00 07:00 IntakeIntake Total 500 ml BalanceBalance 500 ml Exam Dysarthric, garbled speech odd thought content Breathing comfortably, no wheeze RRR Medications Medication Current Medications IV Flush (NS 3 ml) 3 ml PER PROTOCOL IV ; Start 08/28/18 at 14:00 Acetaminophen/ Hydrocodone Bitart ([place] (5/325)) 2 tab Q6H PRN PO .SEVERE PAIN 7-10; Start 08/28/18 at 14:00 Enoxaparin Sodium (Lovenox) 30 mg DAILY SC Last administered on 08/31/18at 08:31; Admin Dose 30 MG; Start 08/29/18 at 09:00 Prednisone (Prednisone) 40 mg DAILY PO Last administered on 08/31/18 08:23; Admin Dose 40 MG; Start 08/28/18 at 14:00 Albuterol/ Ipratropium (Duoneb) 3 ml Q4H RESP THERAPY HHN Last administered on 08/31/18 13:10; Admin Dose 3 ML; Start 08/28/18 at 17:00 Lorazepam (Ativan) 1 mg Q8H PRN IV agitation Last administered on 08/30/18 13:23; Admin Dose 1 MG; Start 08/28/18 at 16:30 Quetiapine Fumarate (Seroquel) 50 mg DAILY PO Last administered on 08/31/18 08:23; Admin Dose 50 MG; Start 08/29/18 at 10:00 Quetiapine Fumarate (Seroquel) 100 mg HS PO Last administered on 08/30/18 21:21; Admin Dose 100 MG; Start 08/29/18 at 21:00 Albuterol (Ventolin Hfa) 2 puff Q6H PRN INH WHEEZING AND SOB; Start 08/29/18 at 17:00 Aspirin (Halfprin) 81 mg DAILY PO Last administered on 08/31/18 08:23; Admin Dose 81 MG; Start 08/30/18 at 09:00 Atorvastatin Calcium (Lipitor) 20 mg QHS PO Last administered on 08/30/18 21:21; Admin Dose 20 MG; Start 08/29/18 at 21:00 Benazepril HCl (Lotensin) 10 mg DAILY PO Last administered on 08/31/18 08:23; Admin Dose 10 MG; Start 08/30/18 at 09:00 Escitalopram Oxalate (Lexapro) 5 mg DAILY PO Last administered on 08/31/18 08:23; Admin Dose 5 MG; Start 08/30/18 at 09:00 Magnesium Hydroxide (Milk Of Mag) 30 ml Q24H PRN PO CONSTIPATION; Start 08/29/18 at 17:00 Trazodone HCl (Desyrel) 50 mg QHS PO Last administered on 08/30/18 21:21; Admin Dose 50 MG; Start 08/29/18 at 21:00 Hydroxyzine Pamoate (Vistaril) 50 mg Q6H PRN PO ITCHING; Start 08/29/18 at 18:30 LASHAWN LOPEZ MD Aug 31, 2018 13:35
--- NOTE | 2018-08-31 14:41 | RADRPT ---
Vent Rate: 97 bpm RR Interval: 0 msec ND Interval: 168 msec QRS Duration: 84 msec QT Interval: 358 msec QTC Interval: 454 msec P-R-T [place]: 64 - 58 - 43 degrees Sinus rhythm with occasional premature ventricular complexes Nonspecific ST abnormality Abnormal ECG Electronically Signed By: Trevor Uribe
[2018-08-31] MEDS: ATORVASTATIN 20 MG TAB PO SCH (20:22)
[2018-08-31] MEDS: QUETIAPINE 100 MG TAB PO SCH (20:22)
[2018-08-31] MEDS: traZODone 50 MG TAB PO SCH (20:22)
[2018-09-01] MEDS: ALBUTEROL/IPRATROPIUM (NEB) 3 ML AMP HHN SCH ×6 (01:00→21:00)
[2018-09-01 02:00] VITALS: BP 154/97; PULSE 82; RESP 20
[2018-09-01 08:25] VITALS: BP 180/117; PULSE 18; PULSE 77; RESP 18
[2018-09-01] MEDS: ASPIRIN (EC) 81 MG TAB PO SCH (08:46)
[2018-09-01] MEDS: QUETIAPINE 25 MG TAB PO SCH (08:46)
[2018-09-01] MEDS: ESCITALOPRAM 10 MG TAB PO SCH (08:46)
[2018-09-01] MEDS: BENAZEPRIL 10 MG TAB PO SCH (08:49)
[2018-09-01] MEDS: ENOXAPARIN 30 MG/0.3 ML SYG SC SCH (08:51)
[2018-09-01] MEDS ORDERED: ALBUTEROL HFA 8 GM INHALER INH PRN ×2 (09:00)
[2018-09-01 10:06] VITALS: BP 137/83; PULSE 92
[2018-09-01] MEDS: LORAZEPAM 2 MG INJ IV PRN (16:01)
--- NOTE | 2018-09-01 16:45 | PN ---
Date/Time of Note Date/Time of Note DATE: 09/01/18 TIME: 16:44 Assessment/Plan VTE Prophylaxis Risk score (from Nsg)>0 risk: 2 SCD applied (from Nsg): Yes Pharmacological prophylaxis: heparin Lines/Catheters IV Catheter Type (from Nrsg): Saline Lock Assessment/Plan Hospital Course 68 yo male with schizophrenia and COPD who presents for unclear reasons, seems he was kicked out of his boarding care facility and then had a choking fit for which EMS was called. He is slightly hypoxic with diffuse wheezing on exam suggestive of COPD exacerbation Acute COPD exacerbation awith mild hypoxia: - Dc steroids - Continue bronchodilators NSTEMI: - This seems like a type II [place], no chest pain and EKG is not consistent with acute ischemia - Cardiology consulted Schizophrenia: - Seroquel 50 mg QAM, 100 QPM Discharge plan per case management. Requires placement in NH Result Diagram: 08/30/18 0548 08/30/18 0548 Subjective 24 Hr Interval Summary Free Text/Dictation Reports anxiety, requesting valium Otherwise doing well No respiratory symptoms Exam/Review of Systems Exam Vitals Vital Signs Date Temp Pulse Resp B/P (MAP) Pulse Ox O2 O2 Flow FiO2 Time Delivery Rate 09/01/18 86 18 93 21 13:17 09/01/18 137/83 10:06 (101) 09/01/18 98.0 Room Air 08:25 08/31/18 2.0 08:32 Intake and Output 08/31/18 08/31/18 09/01/18 1515:00 23:00 07:00 IntakeIntake Total 680 ml 440 ml BalanceBalance 680 ml 440 ml Constitutional: alert, oriented, well developed Psych: no complaints, nl mood/affect Head: normocephalic, atraumatic Eyes: nl conjunctiva, EOMI, nl lids, nl sclera, PERRL ENMT: nl external ears & nose, nl lips & teeth, nl nasal mucosa & septum Neck: supple, non-tender Respiratory: clear to auscultation, normal air movement Cardiovascular: regular rate and rhythm, nl pulses Gastrointestinal: soft, nl liver, spleen, non-tender Musculoskeletal: nl extremities to inspection, nl gait and stance Extremities: normal pulses Neurological: CREW CLERK II-XII intact, nl mental status, nl speech, nl strength Skin: nl turgor; No rash or lesions Lymph: nl lymph nodes Medications Medication Current Medications IV Flush (NS 3 ml) 3 ml PER PROTOCOL IV ; Start 08/28/18 at 14:00 Acetaminophen/ Hydrocodone Bitart ([place] (5/325)) 2 tab Q6H PRN PO .SEVERE PAIN 7-10; Start 08/28/18 at 14:00 Enoxaparin Sodium (Lovenox) 30 mg DAILY SC Last administered on 09/01/18 08:51; Admin Dose 30 MG; Start 08/29/18 at 09:00 Albuterol/ Ipratropium (Duoneb) 3 ml Q4H RESP THERAPY HHN Last administered on 09/01/18 13:17; Admin Dose 3 ML; Start 08/28/18 at 17:00 Lorazepam (Ativan) 1 mg Q8H PRN IV agitation Last administered on 09/01/18 16:01; Admin Dose 1 MG; Start 08/28/18 at 16:30 Quetiapine Fumarate (Seroquel) 50 mg DAILY PO Last administered on 09/01/18 08:46; Admin Dose 50 MG; Start 08/29/18 at 10:00 Quetiapine Fumarate (Seroquel) 100 mg HS PO Last administered on 08/31/18 20:22; Admin Dose 100 MG; Start 08/29/18 at 21:00 Aspirin (Halfprin) 81 mg DAILY PO Last administered on 09/01/18 08:46; Admin Dose 81 MG; Start 08/30/18 at 09:00 Atorvastatin Calcium (Lipitor) 20 mg QHS PO Last administered on 08/31/18 20:22; Admin Dose 20 MG; Start 08/29/18 at 21:00 Benazepril HCl (Lotensin) 10 mg DAILY PO Last administered on 09/01/18 08:49; Admin Dose 10 MG; Start 08/30/18 at 09:00 Escitalopram Oxalate (Lexapro) 5 mg DAILY PO Last administered on 09/01/18 08:46; Admin Dose 5 MG; Start 08/30/18 at 09:00 Magnesium Hydroxide (Milk Of Mag) 30 ml Q24H PRN PO CONSTIPATION; Start 08/29/18 at 17:00 Trazodone HCl (Desyrel) 50 mg QHS PO Last administered on 3/18/19at 20:22; A dmin Dose 50 MG; Start 08/29/18 at 21:00 Hydroxyzine Pamoate (Vistaril) 50 mg Q6H PRN PO ITCHING; Start 08/29/18 at 18:30 Hydralazine HCl (Apresoline) 10 mg Q6H PRN IV ELEVATED BLOOD PRESSURE; Start 08/31/18 at 23:00 Albuterol (Ventolin Hfa) 2 puff Q6H RESP THERAPY PRN INH WHEEZING AND SOB; Start 09/01/18 at 09:00 Albuterol (Ventolin Hfa) 2 puff Q6H RESP THERAPY PRN INH WHEEZING AND SOB; Start 09/01/18 at 09:00 LASHAWN LOPEZ MD Sep 01, 2018 16:45
[2018-09-01 20:00] VITALS: BP 164/107; PULSE 80; RESP 20
[2018-09-01] MEDS: QUETIAPINE 100 MG TAB PO SCH (20:35)
[2018-09-01] MEDS: ATORVASTATIN 20 MG TAB PO SCH (20:35)
[2018-09-01] MEDS: traZODone 50 MG TAB PO SCH (20:35)
[2018-09-02] VITALS (7 sets, daily range): BP systolic 112–169; BP diastolic 65–105; PULSE 72–96; RESP 18–19
[2018-09-02] MEDS: ALBUTEROL/IPRATROPIUM (NEB) 3 ML AMP HHN SCH ×6 (00:52→21:00)
[2018-09-02] MEDS: hydrALAzine 20 MG INJ IV PRN (02:07)
[2018-09-02] MEDS: ENOXAPARIN 30 MG/0.3 ML SYG SC SCH (09:00)
[2018-09-02] MEDS: ESCITALOPRAM 10 MG TAB PO SCH (09:07)
[2018-09-02] MEDS: QUETIAPINE 25 MG TAB PO SCH (09:08)
[2018-09-02] MEDS: BENAZEPRIL 10 MG TAB PO SCH (09:08)
[2018-09-02] MEDS: ASPIRIN (EC) 81 MG TAB PO SCH (09:08)
[2018-09-02] MEDS: LORAZEPAM 2 MG INJ IV PRN (14:08)
--- NOTE | 2018-09-02 14:44 | CONS ---
Assessment/Plan Assessment/Plan Hospital Course (Demo Recall) Assessment: Mild troponin elevation - clinical history does not suggest acute coronary syndrome, ? type 2 NSTEMI vs chronic elevation of unclear significane Chronic obstructive pulmonary disease exacerbation - appears to be improving on steroids and bronchodilators Schizophrenia Incomplete data Recommendations: -echocardiogram reported normal LVEF 55% -defer additional cardiac work up at this time given patient's uncertain social situation and compliance -continue aspirin 81mg daily Consultation Date/Type/Reason Admit Date/Time Aug 28, 2018 at 12:57 Initial Consult Date Type of Consult Cardiology Date/Time of Note DATE: 09/02/18 TIME: 14:43 24 HR Interval Summary Free Text/Dictation Breathing comfortably on room air. Denies chest pain. Detailed Summary Additional Comments 14 point review of systems without changes. Exam/Review of Systems Vital Signs Vitals Vital Signs Date Temp Pulse Resp B/P (MAP) Pulse Ox O2 O2 Flow FiO2 Time Delivery Rate 09/02/18 98.0 87 18 117/76 94 Room Air 14:07 (90) 09/02/18 21 08:18 08/31/18 2.0 08:32 Intake and Output 09/01/18 09/01/18 09/02/18 1515:00 23:00 07:00 IntakeIntake Total 800 ml 240 ml BalanceBalance 800 ml 240 ml Exam Exam Constitutional: alert Psych: No nl mood/affect Head: normocephalic, atraumatic Eyes: nl conjunctiva, nl lids ENMT: nl external ears & nose, nl nasal mucosa & septum Neck: supple, non-tender; No jvd Respiratory: clear to auscultation; No wheezing Cardiovascular: regular rate and rhythm Gastrointestinal: soft, non-tender Musculoskeletal: nl extremities to inspection Extremities: No cyanosis, No clubbing, No edema Neurological: No nl mental status, No nl speech Labs Result Diagram: 08/30/1854708/30/18547 Medications Medications Current Medications IV Flush (NS 3 ml) 3 ml PER PROTOCOL IV ; Start 08/28/18 at 14:00 Acetaminophen/ Hydrocodone Bitart ([place] (5/325)) 2 tab Q6H PRN PO .SEVERE PAIN 7-10; Start 08/28/18 at 14:00 Enoxaparin Sodium (Lovenox) 30 mg DAILY SC Last administered on 09/01/18at 08:51; Admin Dose 30 MG; Start 08/29/18 at 09:00 Albuterol/ Ipratropium (Duoneb) 3 ml Q4H RESP THERAPY HHN Last administered on 09/02/18 08:18; Admin Dose 3 ML; Start 08/28/18 at 17:00 Lorazepam (Ativan) 1 mg Q8H PRN IV agitation Last administered on 09/02/18 14:08; Admin Dose 1 MG; Start 08/28/18 at 16:30 Quetiapine Fumarate (Seroquel) 50 mg DAILY PO Last administered on 09/02/18 09:08; Admin Dose 50 MG; Start 08/29/18 at 10:00 Quetiapine Fumarate (Seroquel) 100 mg HS PO Last administered on 09/01/18 20:35; Admin Dose 100 MG; Start 08/29/18 at 21:00 Aspirin (Halfprin) 81 mg DAILY PO Last administered on 09/02/18 09:08; Admin D ose 81 MG; Start 08/30/18 at 09:00 Atorvastatin Calcium (Lipitor) 20 mg QHS PO Last administered on 09/01/18 20:35; Admin Dose 20 MG; Start 08/29/18 at 21:00 Benazepril HCl (Lotensin) 10 mg DAILY PO Last administered on 09/02/18 09:08; Admin Dose 10 MG; Start 08/30/18 at 09:00 Escitalopram Oxalate (Lexapro) 5 mg DAILY PO Last administered on 09/02/18 09:07; Admin Dose 5 MG; Start 08/30/18 at 09:00 Magnesium Hydroxide (Milk Of Mag) 30 ml Q24H PRN PO CONSTIPATION; Start 08/29/18 at 17:00 Trazodone HCl (Desyrel) 50 mg QHS PO Last administered on 09/01/18 20:35; Admin Dose 50 MG; Start 08/29/18 at 21:00 Hydroxyzine Pamoate (Vistaril) 50 mg Q6H PRN PO ITCHING; Start 08/29/18 at 18:30 Hydralazine HCl (Apresoline) 10 mg Q6H PRN IV ELEVATED BLOOD PRESSURE Last administered on 09/02/18 02:07; Admin Dose 10 MG; Start 08/31/18 at 23:00 Albuterol (Ventolin Hfa) 2 puff Q6H RESP THERAPY PRN INH WHEEZING AND SOB; Start 09/01/18 at 09:00 Albuterol (Ventolin Hfa) 2 puff Q6H RESP THERAPY PRN INH WHEEZING AND SOB; Start 09/01/18 at 09:00 TRICIA LANDRY MD Sep 02, 2018 14:44
--- NOTE | 2018-09-02 16:44 | PN ---
Date/Time of Note Date/Time of Note DATE: 09/02/18 TIME: 16:44 Assessment/Plan VTE Prophylaxis Risk score (from Nsg)>0 risk: 2 SCD applied (from Nsg): Yes Pharmacological prophylaxis: heparin Lines/Catheters IV Catheter Type (from Nrs): Saline Lock Assessment/Plan Hospital Course 68 yo male with schizophrenia and COPD who presents for unclear reasons, seems he was kicked out of his boarding care facility and then had a choking fit for which EMS was called. He is slightly hypoxic with diffuse wheezing on exam suggestive of COPD exacerbation Acute COPD exacerbation awith mild hypoxia: - Dc steroids - Continue bronchodilators NSTEMI: - This seems like a type II [place], no chest pain and EKG is not consistent with acute ischemia - Cardiology consulted - TTE with normal EF Schizophrenia: - Seroquel 50 mg QAM, 100 QPM Discharge plan per case management. Requires placement in NH Result Diagram: 08/30/1848 08/30/1848 Subjective 24 Hr Interval Summary Free Text/Dictation Patient stable Awaiting discharge planning No complaints Exam/Review of Systems Exam Vitals Vital Signs Date Temp Pulse Resp B/P (MAP) Pulse Ox O2 O2 Flow FiO2 Time Delivery Rate 09/02/18 98.0 87 18 117/76 94 Room Air 14:07 (90) 09/02/18 21 08:18 08/31/18 2.0 08:32 Intake and Output 09/01/18 09/01/18 09/02/18 1515:00 23:00 07:00 IntakeIntake Total 800 ml 240 ml BalanceBalance 800 ml 240 ml Constitutional: alert, oriented, well developed Psych: no complaints, nl mood/affect Head: normocephalic, atraumatic Eyes: nl conjunctiva, EOMI, nl lids, nl sclera, PERRL ENMT: nl external ears & nose, nl lips & teeth, nl nasal mucosa & septum Neck: supple, non-tender Respiratory: clear to auscultation, normal air movement Cardiovascular: regular rate and rhythm, nl pulses Gastrointestinal: soft, nl liver, spleen, non-tender Musculoskeletal: nl extremities to inspection, nl gait and stance Extremities: normal pulses Neurological: TELEVISION TUBE INSPECTOR II-XII intact, nl mental status, nl speech, nl strength Skin: nl turgor; No rash or lesions Lymph: nl lymph nodes Medications Medication Current Medications IV Flush (NS 3 ml) 3 ml PER PROTOCOL IV ; Start 08/28/18 at 14:00 Acetaminophen/ Hydrocodone Bitart ([place] (5/325)) 2 tab Q6H PRN PO .SEVERE PAIN 7-10; Start 08/28/18 at 14:00 Enoxaparin Sodium (Lovenox) 30 mg DAILY SC Last administered on 09/01/18 08:51; Admin Dose 30 MG; Start 08/29/18 at 09:00 Albuterol/ Ipratropium (Duoneb) 3 ml Q4H RESP THERAPY HHN Last administered on 09/02/18 08:18; Admin Dose 3 ML; Start 08/28/18 at 17:00 Lorazepam (Ativan) 1 mg Q8H PRN IV agitation Last administered on 09/02/18 14:08; Admin Dose 1 MG; Start 08/28/18 at 16:30 Quetiapine Fumarate (Seroquel) 50 mg DAILY PO Last administered on 09/02/18 09:08; Admin Dose 50 MG; Start 08/29/18 at 10:00 Quetiapine Fumarate (Seroquel) 100 mg HS PO Last administered on 09/01/18 20:35; Admin Dose 100 MG; Start 08/29/18 at 21:00 Aspirin (Halfprin) 81 mg DAILY PO Last administered on 09/02/18 09:08; Admin Dose 81 MG; Start 08/30/18 at 09:00 Atorvastatin Calcium (Lipitor) 20 mg QHS PO Last administered on 09/01/18 20:35; Admin Dose 20 MG; Start 08/29/18 at 21:00 Benazepril HCl (Lotensin) 10 mg DAILY PO Last administered on 09/02/18 09:08; Admin Dose 10 MG; Start 08/30/18 at 09:00 Escitalopram Oxalate (Lexapro) 5 mg DAILY PO Last administered on 09/02/18 09:07; Admin Dose 5 MG; Start 08/30/18 at 09:00 Magnesium Hydroxide (Milk Of Mag) 30 ml Q24H PRN PO CONSTIPATION; Start 08/29/18 at 17:00 Trazodone HCl (Desyrel) 50 mg QHS PO Last administered on 09/01/18 20:35; Admin Dose 50 MG; Start 08/29/18 at 21:00 Hydroxyzine Pamoate (Vistaril) 50 mg Q6H PRN PO ITCHING; Start 08/29/18 at 18:30 Hydralazine HCl (Apresoline) 10 mg Q6H PRN IV ELEVATED BLOOD PRESSURE Last administered on 09/02/18at 02:07; Admin Dose 10 MG; Start 08/31/18 at 23:00 Albuterol (Ventolin Hfa) 2 puff Q6H RESP THERAPY PRN INH WHEEZING AND SOB; Start 09/01/18 at 09:00 Albuterol (Ventolin Hfa) 2 puff Q6H RESP THERAPY PRN INH WHEEZING AND SOB; Start 09/01/18 at 09:00 LASHAWN LOPEZ MD Sep 02, 2018 16:44
[2018-09-02] MEDS: ATORVASTATIN 20 MG TAB PO SCH (20:38)
[2018-09-02] MEDS: QUETIAPINE 100 MG TAB PO SCH (20:38)
[2018-09-02] MEDS: traZODone 50 MG TAB PO SCH (20:38)
[2018-09-03] MEDS: ALBUTEROL/IPRATROPIUM (NEB) 3 ML AMP HHN SCH ×6 (01:00→21:00)
[2018-09-03 02:00] VITALS: BP 153/84; PULSE 80; RESP 17
[2018-09-03 07:48] VITALS: BP 164/94; PULSE 73; RESP 18
[2018-09-03] MEDS: QUETIAPINE 25 MG TAB PO SCH (09:04)
[2018-09-03] MEDS: ASPIRIN (EC) 81 MG TAB PO SCH (09:04)
[2018-09-03] MEDS: BENAZEPRIL 10 MG TAB PO SCH (09:04)
[2018-09-03] MEDS: ESCITALOPRAM 10 MG TAB PO SCH (09:04)
[2018-09-03] MEDS: ENOXAPARIN 30 MG/0.3 ML SYG SC SCH (09:05)
[2018-09-03] MEDS: LORAZEPAM 2 MG INJ IV PRN (13:19)
[2018-09-03 14:40] VITALS: BP 131/78; PULSE 85; RESP 16
--- NOTE | 2018-09-03 16:59 | PN ---
Date/Time of Note Date/Time of Note DATE: 09/03/18 TIME: 16:57 Assessment/Plan VTE Prophylaxis Risk score (from Nsg)>0 risk: 2 SCD applied (from Nsg): Yes Pharmacological prophylaxis: heparin Lines/Catheters IV Catheter Type (from Nrs): Saline Lock Assessment/Plan Hospital Course 68 yo male with schizophrenia and COPD who presents for unclear reasons, seems he was kicked out of his boarding care facility and then had a choking fit for which EMS was called. He was slightly hypoxic with diffuse wheezing on exam suggestive of COPD exacerbation, now resolved. Now awaiting placement options COPD: - Breathing comfortably now - Continue bronchodilators NSTEMI: - This seems like a type II NM, no chest pain and EKG is not consistent with acute ischemia - Cardiology consulted - TTE with normal EF Schizophrenia: - Seroquel 50 mg QAM, 100 QPM Discharge plan per case management. Requires placement in NH Result Diagram: 08/30/18 0548 08/30/18 0548 Subjective 24 Hr Interval Summary Free Text/Dictation No change to clinical status Awaiting placement Exam/Review of Systems Exam Vitals Vital Signs Date Temp Pulse Resp B/P (MAP) Pulse Ox O2 O2 Flow FiO2 Time Delivery Rate 09/03/18 99.4 85 16 131/78 91 Room Air 14:40 (95) 09/02/18 08:18 08/31/18 2.0 08:32 Intake and Output 09/02/18 09/02/18 09/03/18 1515:00 23:00 07:00 IntakeIntake Total 700 ml 380 ml 350 ml BalanceBalance 700 ml 380 ml 350 ml Constitutional: alert, oriented, well developed Psych: no complaints, nl mood/affect Head: normocephalic, atraumatic Eyes: nl conjunctiva, EOMI, nl lids, nl sclera, PERRL ENMT: nl external ears & nose, nl lips & teeth, nl nasal mucosa & septum Neck: supple, non-tender Respiratory: clear to auscultation, normal air movement Cardiovascular: regular rate and rhythm, nl pulses Gastrointestinal: soft, nl liver, spleen, non-tender Musculoskeletal: nl extremities to inspection, nl gait and stance Extremities: normal pulses Neurological: HONING JOB SETTER II-XII intact, nl mental status, nl speech, nl strength Skin: nl turgor; No rash or lesions Lymph: nl lymph nodes Medications Medication Current Medications IV Flush (NS 3 ml) 3 ml PER PROTOCOL IV ; Start 08/28/18 at 14:00 Acetaminophen/ Hydrocodone Bitart ([place] (5/325)) 2 tab Q6H PRN PO .SEVERE PAIN 7-10; Start 08/28/18 at 14:00 Enoxaparin Sodium (Lovenox) 30 mg DAILY SC Last administered on 09/03/18 09:05; Admin Dose 30 MG; Start 08/29/18 at 09:00 Albuterol/ Ipratropium (Duoneb) 3 ml Q4H RESP THERAPY HHN Last administered on 09/02/18 08:18; Admin Dose 3 ML; Start 08/28/18 at 17:00 Lorazepam (Ativan) 1 mg Q8H PRN IV agitation Last administered on 09/03/18 13:19; Admin Dose 1 MG; Start 08/28/18 at 16:30 Quetiapine Fumarate (Seroquel) 50 mg DAILY PO Last administered on 09/03/18 09:04; Admin Dose 50 MG; Start 08/29/18 at 10:00 Quetiapine Fumarate (Seroquel) 100 mg HS PO Last administered on 09/02/18 20:3 8; Admin Dose 100 MG; Start 08/29/18 at 21:00 Aspirin (Halfprin) 81 mg DAILY PO Last administered on 09/03/18 09:04; Admin Dose 81 MG; Start 08/30/18 at 09:00 Atorvastatin Calcium (Lipitor) 20 mg QHS PO Last administered on 09/02/18 20:38; Admin Dose 20 MG; Start 08/29/18 at 21:00 Benazepril HCl (Lotensin) 10 mg DAILY PO Last administered on 09/03/18 09:04; Admin Dose 10 MG; Start 08/30/18 at 09:00 Escitalopram Oxalate (Lexapro) 5 mg DAILY PO Last administered on 09/03/18 09:04; Admin Dose 5 MG; Start 08/30/18 at 09:00 Magnesium Hydroxide (Milk Of Mag) 30 ml Q24H PRN PO CONSTIPATION; Start 08/29/18 at 17:00 Trazodone HCl (Desyrel) 50 mg QHS PO Last administered on 3/20/19at 20:38; Admin Dose 50 MG; Start 08/29/18 at 21:00 Hydroxyzine Pamoate (Vistaril) 50 mg Q6H PRN PO ITCHING; Start 08/29/18 at 18:30 Hydralazine HCl (Apresoline) 10 mg Q6H PRN IV ELEVATED BLOOD PRESSURE Last administered on 09/02/18at 02:07; Admin Dose 10 MG; Start 08/31/18 at 23:00 Albuterol (Ventolin Hfa) 2 puff Q6H RESP THERAPY PRN INH WHEEZING AND SOB; Start 09/01/18 at 09:00 Albuterol (Ventolin Hfa) 2 puff Q6H RESP THERAPY PRN INH WHEEZING AND SOB; Start 09/01/18 at 09:00 LASHAWN LOPEZ MD Sep 03, 2018 16:59
[2018-09-03] MEDS: ATORVASTATIN 20 MG TAB PO SCH (21:00)
[2018-09-03] MEDS: traZODone 50 MG TAB PO SCH (21:00)
[2018-09-03] MEDS: QUETIAPINE 100 MG TAB PO SCH (21:00)
[2018-09-03 21:04] VITALS: BP 148/89; PULSE 73; RESP 18
[2018-09-04] MEDS: ALBUTEROL/IPRATROPIUM (NEB) 3 ML AMP HHN SCH ×6 (00:39→20:50)
[2018-09-04] MEDS: QUETIAPINE 25 MG TAB PO SCH (09:00)
[2018-09-04] MEDS: ESCITALOPRAM 10 MG TAB PO SCH (09:00)
[2018-09-04] MEDS: ENOXAPARIN 30 MG/0.3 ML SYG SC SCH (09:00)
[2018-09-04] MEDS: ASPIRIN (EC) 81 MG TAB PO SCH (09:00)
[2018-09-04] MEDS: BENAZEPRIL 10 MG TAB PO SCH (09:00)
[2018-09-04] MEDS: LORAZEPAM 2 MG INJ IV PRN (13:23)
[2018-09-04 14:00] VITALS: BP 149/96; PULSE 85; RESP 18
--- NOTE | 2018-09-04 14:40 | PN ---
Date/Time of Note Date/Time of Note DATE: 09/04/18 TIME: 14:40 Assessment/Plan VTE Prophylaxis Risk score (from Nsg)>0 risk: 2 SCD applied (from Nsg): Yes Pharmacological prophylaxis: heparin Lines/Catheters IV Catheter Type (from Nrsg): Peripheral IV Assessment/Plan Hospital Course 68 yo male with schizophrenia and COPD who presents for unclear reasons, seems he was kicked out of his boarding care facility and then had a choking fit for which EMS was called. He was slightly hypoxic with diffuse wheezing on exam suggestive of COPD exacerbation, now resolved. Now awaiting placement options COPD: - Breathing comfortably now - Continue bronchodilators NSTEMI: - This seems like a type II NM, no chest pain and EKG is not consistent with acute ischemia - Cardiology consulted - TTE with normal EF Schizophrenia: - Seroquel 50 mg QAM, 100 QPM Discharge plan per case management. Requires placement in NH Subjective 24 Hr Interval Summary Free Text/Dictation No change to clinical status Awaiting placement Exam/Review of Systems Exam Vitals Vital Signs Date Temp Pulse Resp B/P (MAP) Pulse Ox O2 O2 Flow FiO2 Time Delivery Rate 09/03/18 97.8 73 18 148/89 92 21:04 (108) 09/03/18 Room Air 14:40 09/02/18 08:18 08/31/18 2.0 08:32 Intake and Output 09/03/18 09/03/18 09/04/18 1515:00 23:00 07:00 IntakeIntake Total 600 ml 300 ml BalanceBalance 600 ml 300 ml Constitutional: alert, oriented, well developed Psych: no complaints, nl mood/affect Head: normocephalic, atraumatic Eyes: nl conjunctiva, EOMI, nl lids, nl sclera, PERRL ENMT: nl external ears & nose, nl lips & teeth, nl nasal mucosa & septum Neck: supple, non-tender Respiratory: clear to auscultation, normal air movement Cardiovascular: regular rate and rhythm, nl pulses Gastrointestinal: soft, nl liver, spleen, non-tender Musculoskeletal: nl extremities to inspection, nl gait and stance Extremities: normal pulses Neurological: RETAIL SERVICE SPECIALIST II-XII intact, nl mental status, nl speech, nl strength Skin: nl turgor; No rash or lesions Lymph: nl lymph nodes Medications Medication Current Medications IV Flush (NS 3 ml) 3 ml PER PROTOCOL IV ; Start 08/28/18 at 14:00 Acetaminophen/ Hydrocodone Bitart ([place] (5/325)) 2 tab Q6H PRN PO .SEVERE PAIN 7-10; Start 08/28/18 at 14:00 Enoxaparin Sodium (Lovenox) 30 mg DAILY SC Last administered on 09/03/18 09:05; Admin Dose 30 MG; Start 08/29/18 at 09:00 Albuterol/ Ipratropium (Duoneb) 3 ml Q4H RESP THERAPY HHN Last administered on 09/02/18 08:18; Admin Dose 3 ML; Start 08/28/18 at 17:00 Lorazepam (Ativan) 1 mg Q8H PRN IV agitation Last administered on 09/04/18 13:23; Admin Dose 1 MG; Start 08/28/18 at 16:30 Quetiapine Fumarate (Seroquel) 50 mg DAILY PO Last administered on 09/03/18 09:04; Admin Dose 50 MG; Start 08/29/18 at 10:00 Quetiapine Fumarate (Seroquel) 100 mg HS PO Last administered on 09/02/18 20:38; Admin Dose 100 MG; Start 08/29/18 at 21:00 Aspirin (Halfprin) 81 mg DAILY PO Last administered on 09/03/18 09:04; Admin Dose 81 MG; Start 08/30/18 at 09:00 Atorvastatin Calcium (Lipitor) 20 mg QHS PO Last administered on 09/02/18 20:38; Admin Dose 20 MG; Start 08/29/18 at 21:00 Benazepril HCl (Lotensin) 10 mg DAILY PO Last administered on 09/03/18 09:04; Admin Dose 10 MG; Start 08/30/18 at 09:00 Escitalopram Oxalate (Lexapro) 5 mg DAILY PO Last administered on 09/03/18 09:04; Admin Dose 5 MG; Start 08/30/18 at 09:00 Magnesium Hydroxide (Milk Of Mag) 30 ml Q24H PRN PO CONSTIPATION; Start 08/29/18 at 17:00 Trazodone HCl (Desyrel) 50 mg QHS PO Last administered on 09/02/18 20:38; Admin Dose 50 MG; Start 08/29/18 at 21:00 Hydroxyzine Pamoate (Vistaril) 50 mg Q6H PRN PO ITCHING; Start 08/29/18 at 18:30 Hydralazine HCl (Apresoline) 10 mg Q6H PRN IV ELEVATED BLOOD PRESSURE Last administered on 09/02/18at 02:07; Admin Dose 10 MG; Start 08/31/18 at 23:00 Albuterol (Ventolin Hfa) 2 puff Q6H RESP THERAPY PRN INH WHEEZING AND SOB; Start 09/01/18 at 09:00 Albuterol (Ventolin Hfa) 2 puff Q6H RESP THERAPY PRN INH WHEEZING AND SOB; Start 09/01/18 at 09:00 LASHAWN LOPEZ MD Sep 04, 2018 14:40
[2018-09-04] MEDS: HYDROCODONE/APAP (5/325) TAB PO PRN (18:41)
[2018-09-04 19:41] VITALS: BP 128/77; PULSE 89; RESP 20
[2018-09-04] MEDS: traZODone 50 MG TAB PO SCH (21:00)
[2018-09-04] MEDS: ATORVASTATIN 20 MG TAB PO SCH (21:00)
[2018-09-04] MEDS: QUETIAPINE 100 MG TAB PO SCH (21:00)
[2018-09-05] MEDS: ALBUTEROL/IPRATROPIUM (NEB) 3 ML AMP HHN SCH ×6 (00:21→21:00)
[2018-09-05] MEDS: hydrALAzine 20 MG INJ IV PRN ×2 (02:06→10:37)
[2018-09-05 02:15] VITALS: BP 184/116; PULSE 61; RESP 18
[2018-09-05 03:19] VITALS: BP 173/86; PULSE 62
[2018-09-05 08:31] VITALS: BP 175/106; PULSE 76; RESP 16
[2018-09-05] MEDS: BENAZEPRIL 10 MG TAB PO SCH (08:36)
[2018-09-05] MEDS: LORAZEPAM 2 MG INJ IV PRN ×2 (08:36→10:02)
[2018-09-05] MEDS: ESCITALOPRAM 10 MG TAB PO SCH (08:55)
[2018-09-05] MEDS: ASPIRIN (EC) 81 MG TAB PO SCH (08:55)
[2018-09-05] MEDS: QUETIAPINE 25 MG TAB PO SCH ×2 (08:55→11:34)
[2018-09-05] MEDS: ENOXAPARIN 30 MG/0.3 ML SYG SC SCH (08:56)
--- NOTE | 2018-09-05 11:38 | PN ---
Date/Time of Note Date/Time of Note DATE: 09/05/18 TIME: 11:37 Assessment/Plan VTE Prophylaxis Risk score (from Nsg)>0 risk: 2 SCD applied (from Nsg): Yes Pharmacological prophylaxis: heparin Lines/Catheters IV Catheter Type (from Nrsg): Saline Lock Assessment/Plan Hospital Course 68 yo male with schizophrenia and COPD who presents for unclear reasons, seems he was kicked out of his boarding care facility and then had a choking fit for which EMS was called. He was slightly hypoxic with diffuse wheezing on exam suggestive of COPD exacerbation, now resolved. Now awaiting placement options COPD: - Breathing comfortably now - Continue bronchodilators NSTEMI: - This seems like a type II [place], no chest pain and EKG is not consistent with acute ischemia - Cardiology consulted - TTE with normal EF Schizophrenia: - Seroquel 50 mg QAM, 100 QPM' Hypertension: - Continue current meds Discharge plan per case management. Requires placement in NH Subjective 24 Hr Interval Summary Free Text/Dictation Calm, awiating placement Convinced to take seroquel and BP meds Exam/Review of Systems Exam Vitals Vital Signs Date Temp Pulse Resp B/P (MAP) Pulse Ox O2 O2 Flow FiO2 Time Delivery Rate 09/05/18 97.6 76 16 175/106 91 Room Air 08:31 (129) 09/02/18 08:18 Intake and Output 09/04/18 09/04/18 09/05/18 1515:00 23:00 07:00 IntakeIntake Total 360 ml BalanceBalance 360 ml Constitutional: alert, oriented, well developed Psych: no complaints, nl mood/affect Head: normocephalic, atraumatic Eyes: nl conjunctiva, EOMI, nl lids, nl sclera, PERRL ENMT: nl external ears & nose, nl lips & teeth, nl nasal mucosa & septum Neck: supple, non-tender Respiratory: clear to auscultation, normal air movement Cardiovascular: regular rate and rhythm, nl pulses Gastrointestinal: soft, nl liver, spleen, non-tender Musculoskeletal: nl extremities to inspection, nl gait and stance Extremities: normal pulses Neurological: [employer] II-XII intact, nl mental status, nl speech, nl strength Skin: nl turgor; No rash or lesions Lymph: nl lymph nodes Medications Medication Current Medications IV Flush (NS 3 ml) 3 ml PER PROTOCOL IV ; Start 08/28/18 at 14:00 Acetaminophen/ Hydrocodone Bitart ([place] (5/325)) 2 tab Q6H PRN PO .SEVERE PAIN 7-10 Last administered on 09/04/18 18:41; Admin Dose 2 TAB; Start 08/28/18 at 14:00 Enoxaparin Sodium (Lovenox) 30 mg DAILY SC Last administered on 09/03/18 09:05; Admin Dose 30 MG; Start 08/29/18 at 09:00 Albuterol/ Ipratropium (Duoneb) 3 ml Q4H RESP THERAPY HHN Last administered on 09/02/18 08:18; Admin Dose 3 ML; Start 08/28/18 at 17:00 Lorazepam (Ativan) 1 mg Q8H PRN IV agitation Last administered on 09/05/18 10:02; Admin Dose 1 MG; Start 08/28/18 at 16:30 Quetiapine Fumarate (Seroquel) 50 mg DAILY PO Last administered on 09/05/18 11:34; Admin Dose 50 MG; Start 08/29/18 at 10:00 Quetiapine Fumarate (Seroquel) 100 mg HS PO Last administered on 09/02/18 20:38; Admin Dose 100 MG; Start 08/29/18 at 21:00 Aspirin (Halfprin) 81 mg DAILY PO Last administered on 09/03/18 09:04; Admin Dose 81 MG; Start 08/30/18 at 09:00 Atorvastatin Calcium (Lipitor) 20 mg QHS PO Last administered on 09/02/18 20:38; Admin Dose 20 MG; Start 08/29/18 at 21:00 Benazepril HCl (Lotensin) 10 mg DAILY PO Last administered on 09/05/18 08:36; Admin Dose 10 MG; Start 08/30/18 at 09:00 Escitalopram Oxalate (Lexapro) 5 mg DAILY PO Last administered on 09/03/18 09:04; Admin Dose 5 MG; Start 08/30/18 at 09:00 Magnesium Hydroxide (Milk Of Mag) 30 ml Q24H PRN PO CONSTIPATION; Start 08/29/18 at 17:00 Trazodone HCl (Desyrel) 50 mg QHS PO Last administered on 3/20/19at 20:38; Admin Dose 50 MG; Start 08/29/18 at 21:00 Hydroxyzine Pamoate (Vistaril) 50 mg Q6H PRN PO ITCHING; Start 08/29/18 at 18:30 Hydralazine HCl (Apresoline) 10 mg Q6H PRN IV ELEVATED BLOOD PRESSURE Last administered on 09/05/18at 10:37; Admin Dose 10 MG; Start 08/31/18 at 23:00 Albuterol (Ventolin Hfa) 2 puff Q6H RESP THERAPY PRN INH WHEEZING AND SOB; Start 09/01/18 at 09:00 Albuterol (Ventolin Hfa) 2 puff Q6H RESP THERAPY PRN INH WHEEZING AND SOB; Start 09/01/18 at 09:00 LASHAWN LOPEZ MD Sep 05, 2018 11:38
[2018-09-05 14:58] VITALS: BP 93/50; PULSE 93; RESP 18
[2018-09-05] MEDS: QUETIAPINE 100 MG TAB PO SCH (20:38)
[2018-09-05 20:41] VITALS: BP 124/94; PULSE 88; RESP 18
[2018-09-06] MEDS: ALBUTEROL/IPRATROPIUM (NEB) 3 ML AMP HHN SCH ×6 (01:00→20:24)
[2018-09-06 07:53] VITALS: BP 143/83; PULSE 57; RESP 17
[2018-09-06] MEDS: ENOXAPARIN 30 MG/0.3 ML SYG SC SCH (09:00)
[2018-09-06] MEDS: QUETIAPINE 25 MG TAB PO SCH (09:00)
[2018-09-06] MEDS: BENAZEPRIL 10 MG TAB PO SCH (09:00)
[2018-09-06] MEDS: LORAZEPAM 2 MG INJ IV PRN (12:07)
[2018-09-06 14:11] VITALS: BP 159/87; PULSE 76; RESP 18
--- NOTE | 2018-09-06 14:26 | PN ---
Date/Time of Note Date/Time of Note DATE: 09/06/18 TIME: 14:26 Assessment/Plan VTE Prophylaxis Risk score (from Nsg)>0 risk: 3 SCD applied (from Nsg): Yes Pharmacological prophylaxis: heparin Lines/Catheters IV Catheter Type (from Nrsg): Saline Lock Assessment/Plan Hospital Course 68 yo male with schizophrenia and COPD who presents for unclear reasons, seems he was kicked out of his boarding care facility and then had a choking fit for which EMS was called. He was slightly hypoxic with diffuse wheezing on exam suggestive of COPD exacerbation, now resolved. Now awaiting placement options COPD: - Breathing comfortably now - Continue bronchodilators NSTEMI: - This seems like a type II [place], no chest pain and EKG is not consistent with acute ischemia - Cardiology consulted - TTE with normal EF Schizophrenia: - Seroquel 50 mg QAM, 100 QPM' Hypertension: - Continue current meds Discharge plan per case management. Requires placement in NH Subjective 24 Hr Interval Summary Free Text/Dictation No change to clinical status Breathing comfortably Awaiting placement Exam/Review of Systems Exam Vitals Vital Signs Date Temp Pulse Resp B/P (MAP) Pulse Ox O2 O2 Flow FiO2 Time Delivery Rate 09/06/18 98.2 76 18 159/87 96 14:11 (111) 09/05/18 Room Air 20:41 09/02/18 21 08:18 Intake and Output 09/05/18 09/05/18 09/06/18 1515:00 23:00 07:00 IntakeIntake Total 720 ml BalanceBalance 720 ml Constitutional: alert, oriented, well developed Psych: no complaints, nl mood/affect Head: normocephalic, atraumatic Eyes: nl conjunctiva, EOMI, nl lids, nl sclera, PERRL ENMT: nl external ears & nose, nl lips & teeth, nl nasal mucosa & septum Neck: supple, non-tender Respiratory: clear to auscultation, normal air movement Cardiovascular: regular rate and rhythm, nl pulses Gastrointestinal: soft, nl liver, spleen, non-tender Musculoskeletal: nl extremities to inspection, nl gait and stance Extremities: normal pulses Neurological: [employer] II-XII intact, nl mental status, nl speech, nl strength Skin: nl turgor; No rash or lesions Lymph: nl lymph nodes Medications Medication Current Medications IV Flush (NS 3 ml) 3 ml PER PROTOCOL IV ; Start 08/28/18 at 14:00 Acetaminophen/ Hydrocodone Bitart ([place] (5/325)) 2 tab Q6H PRN PO .SEVERE PAIN 7-10 Last administered on 09/04/18 18:41; Admin Dose 2 TAB; Start 08/28/18 at 14:00 Enoxaparin Sodium (Lovenox) 30 mg DAILY SC Last administered on 09/03/18 09:05; Admin Dose 30 MG; Start 08/29/18 at 09:00 Albuterol/ Ipratropium (Duoneb) 3 ml Q4H RESP THERAPY HHN Last administered on 09/02/18 08:18; Admin Dose 3 ML; Start 08/28/18 at 17:00 Lorazepam (Ativan) 1 mg Q8H PRN IV agitation Last administered on 09/06/18 12:07; Admin Dose 1 MG; Start 08/28/18 at 16:30 Quetiapine Fumarate (Seroquel) 50 mg DAILY PO Last administered on 09/05/18 11:34; Admin Dose 50 MG; Start 08/29/18 at 10:00 Quetiapine Fumarate (Seroquel) 100 mg HS PO Last administered on 09/05/18 20:38; Admin Dose 100 MG; Start 08/29/18 at 21:00 Benazepril HCl (Lotensin) 10 mg DAILY PO Last administered on 09/05/18 08:36; Admin Dose 10 MG; Start 08/30/18 at 09:00 Magnesium Hydroxide (Milk Of Mag) 30 ml Q24H PRN PO CONSTIPATION; Start 08/29/18 at 17:00 Hydroxyzine Pamoate (Vistaril) 50 mg Q6H PRN PO ITCHING; Start 08/29/18 at 18:30 Albuterol (Ventolin Hfa) 2 puff Q6H RESP THERAPY PRN INH WHEEZING AND SOB; Start 09/01/18 at 09:00 Albuterol (Ventolin Hfa) 2 puff Q6H RESP THERAPY PRN INH WHEEZING AND SOB; Start 09/01/18 at 09:00 LASHAWN LOPEZ MD Sep 06, 2018 14:26
[2018-09-06] MEDS: QUETIAPINE 100 MG TAB PO SCH (20:19)
[2018-09-07] MEDS: ALBUTEROL/IPRATROPIUM (NEB) 3 ML AMP HHN SCH ×6 (01:00→21:00)
[2018-09-07 02:30] VITALS: BP 130/79; PULSE 74; RESP 18
[2018-09-07] MEDS: QUETIAPINE 25 MG TAB PO SCH (08:28)
[2018-09-07] MEDS: BENAZEPRIL 10 MG TAB PO SCH ×2 (08:31→20:16)
[2018-09-07] MEDS: ENOXAPARIN 30 MG/0.3 ML SYG SC SCH (08:31)
[2018-09-07 14:00] VITALS: BP 151/86; RESP 19
[2018-09-07 20:06] VITALS: BP 180/100; PULSE 71; RESP 18
[2018-09-07] MEDS: QUETIAPINE 100 MG TAB PO SCH (20:16)
[2018-09-07] MEDS: LORAZEPAM 2 MG INJ IV PRN (20:18)
[2018-09-07 21:55] VITALS: BP 139/77; PULSE 70
[2018-09-08] MEDS: ALBUTEROL/IPRATROPIUM (NEB) 3 ML AMP HHN SCH ×6 (01:00→21:00)
[2018-09-08 08:11] VITALS: BP 126/71; PULSE 67
[2018-09-08] MEDS: QUETIAPINE 25 MG TAB PO SCH (08:11)
[2018-09-08] MEDS: BENAZEPRIL 10 MG TAB PO SCH (08:11)
[2018-09-08] MEDS: ENOXAPARIN 30 MG/0.3 ML SYG SC SCH (08:13)
[2018-09-08 13:46] VITALS: BP 127/76; PULSE 56; RESP 18
[2018-09-08 13:47] VITALS: BP 126/76; RESP 18
--- NOTE | 2018-09-08 14:30 | PN ---
Date/Time of Note Date/Time of Note DATE: 09/08/18 TIME: 14:29 Assessment/Plan VTE Prophylaxis Risk score (from Nsg)>0 risk: 2 Pharmacological prophylaxis: NA/contraindicated Pharm contraindication: low risk/ambulating Lines/Catheters IV Catheter Type (from Nrsg): Peripheral IV Assessment/Plan Hospital Course 68 yo male with schizophrenia and COPD who presents for unclear reasons, seems he was kicked out of his boarding care facility and then had a choking fit for which EMS was called. He was slightly hypoxic with diffuse wheezing on exam suggestive of COPD exacerbation, now resolved. Now awaiting placement options COPD: - Breathing comfortably now - Continue bronchodilators NSTEMI: - This seems like a type II [place], no chest pain and EKG is not consistent with acute ischemia - Cardiology consulted - TTE with normal EF Schizophrenia: - Seroquel 50 mg QAM, 100 QPM' Hypertension: - Continue current meds Discharge plan per case management. Requires placement in NH Subjective 24 Hr Interval Summary Constitutional: no complaints Exam/Review of Systems Exam Vitals Vital Signs Date Temp Pulse Resp B/P (MAP) Pulse Ox O2 O2 Flow FiO2 Time Delivery Rate 09/08/18 98.7 18 126/76 91 Room Air 13:47 (93) 09/08/18 56 13:46 Intake and Output 09/07/18 09/07/18 09/08/18 1515:00 23:00 07:00 IntakeIntake Total 200 ml 120 ml BalanceBalance 200 ml 120 ml Constitutional: alert Respiratory: clear to auscultation Cardiovascular: regular rate and rhythm Gastrointestinal: soft Musculoskeletal: nl extremities to inspection Medications Medication Current Medications IV Flush (NS 3 ml) 3 ml PER PROTOCOL IV ; Start 08/28/18 at 14:00 Acetaminophen/ Hydrocodone Bitart ([place] (5/325)) 2 tab Q6H PRN PO .SEVERE PAIN 7-10 Last administered on 09/04/18at 18:41; Admin Dose 2 TAB; Start 08/28/18 at 14:00 Enoxaparin Sodium (Lovenox) 30 mg DAILY SC Last administered on 09/08/18at 08:13; Admin Dose 30 MG; Start 08/29/18 at 09:00 Albuterol/ Ipratropium (Duoneb) 3 ml Q4H RESP THERAPY HHN Last administered on 09/02/18 08:18; Admin Dose 3 ML; Start 08/28/18 at 17:00 Lorazepam (Ativan) 1 mg Q8H PRN IV agitation Last administered on 09/07/18 20:18; Admin Dose 1 MG; Start 08/28/18 at 16:30 Quetiapine Fumarate (Seroquel) 50 mg DAILY PO Last administered on 09/08/18 08:11; Admin Dose 50 MG; Start 08/29/18 at 10:00 Quetiapine Fumarate (Seroquel) 100 mg HS PO Last administered on 09/07/18 20:16; Admin Dose 100 MG; Start 08/29/18 at 21:00 Benazepril HCl (Lotensin) 10 mg DAILY PO Last administered on 09/08/18 08:11; Admin Dose 10 MG; Start 08/30/18 at 09:00 Magnesium Hydroxide (Milk Of Mag) 30 ml Q24H PRN PO CONSTIPATION; Start 08/29/18 at 17:00 Hydroxyzine Pamoate (Vistaril) 50 mg Q6H PRN PO ITCHING; Start 08/29/18 at 18:30 Albuterol (Ventolin Hfa) 2 puff Q6H RESP THERAPY PRN INH WHEEZING AND SOB; Start 09/01/18 at 09:00 Albuterol (Ventolin Hfa) 2 puff Q6H RESP THERAPY PRN INH WHEEZING AND SOB; Start 09/01/18 at 09:00 EBENEZER RANKIN Sep 08, 2018 14:30
--- NOTE | 2018-09-08 14:33 | PN ---
Date/Time of Note Date/Time of Note DATE: 09/07/18 TIME: 14:30 Assessment/Plan VTE Prophylaxis Risk score (from Nsg)>0 risk: 2 Pharmacological prophylaxis: NA/contraindicated Pharm contraindication: low risk/ambulating Lines/Catheters IV Catheter Type (from Nrsg): Peripheral IV Assessment/Plan Hospital Course 68 yo male with schizophrenia and COPD who presents for unclear reasons, seems he was kicked out of his boarding care facility and then had a choking fit for which EMS was called. He was slightly hypoxic with diffuse wheezing on exam suggestive of COPD exacerbation, now resolved. Now awaiting placement options COPD: - Breathing comfortably now - Continue bronchodilators NSTEMI: - This seems like a type II [place], no chest pain and EKG is not consistent with acute ischemia - Cardiology consulted - TTE with normal EF Schizophrenia: - Seroquel 50 mg QAM, 100 QPM' Hypertension: - Continue current meds Discharge plan per case management. Requires placement in NH Subjective 24 Hr Interval Summary Free Text/Dictation Late entry from 09/07/2018 Constitutional: no complaints Exam/Review of Systems Exam Vitals Vital Signs Date Temp Pulse Resp B/P (MAP) Pulse Ox O2 O2 Flow FiO2 Time Delivery Rate 09/08/18 98.7 18 126/76 91 Room Air 13:47 (93) 09/08/18 56 13:46 Intake and Output 09/07/18 09/07/18 09/08/18 1515:00 23:00 07:00 IntakeIntake Total 200 ml 120 ml BalanceBalance 200 ml 120 ml Constitutional: alert Respiratory: clear to auscultation Cardiovascular: regular rate and rhythm Gastrointestinal: soft; No distended Musculoskeletal: nl extremities to inspection Medications Medication Current Medications IV Flush (NS 3 ml) 3 ml PER PROTOCOL IV ; Start 08/28/18 at 14:00 Acetaminophen/ Hydrocodone Bitart ([place] (5/325)) 2 tab Q6H PRN PO .SEVERE PAIN 7-10 Last administered on 09/04/18at 18:41; Admin Dose 2 TAB; Start 08/28/18 at 14:00 Enoxaparin Sodium (Lovenox) 30 mg DAILY SC Last administered on 09/08/18at 08:13; Admin Dose 30 MG; Start 08/29/18 at 09:00 Albuterol/ Ipratropium (Duoneb) 3 ml Q4H RESP THERAPY HHN Last administered on 09/02/18 08:18; Admin Dose 3 ML; Start 08/28/18 at 17:00 Lorazepam (Ativan) 1 mg Q8H PRN IV agitation Last administered on 09/07/18 20:18; Admin Dose 1 MG; Start 08/28/18 at 16:30 Quetiapine Fumarate (Seroquel) 50 mg DAILY PO Last administered on 09/08/18at 08:11; Admin Dose 50 MG; Start 08/29/18 at 10:00 Quetiapine Fumarate (Seroquel) 100 mg HS PO Last administered on 09/07/18 20:16; Admin Dose 100 MG; Start 08/29/18 at 21:00 Benazepril HCl (Lotensin) 10 mg DAILY PO Last administered on 09/08/18 08:11; Admin Dose 10 MG; Start 08/30/18 at 09:00 Magnesium Hydroxide (Milk Of Mag) 30 ml Q24H PRN PO CONSTIPATION; Start 08/29/18 at 17:00 Hydroxyzine Pamoate (Vistaril) 50 mg Q6H PRN PO ITCHING; Start 08/29/18 at 18:30 Albuterol (Ventolin Hfa) 2 puff Q6H RESP THERAPY PRN INH WHEEZING AND SOB; Start 09/01/18 at 09:00 Albuterol (Ventolin Hfa) 2 puff Q6H RESP THERAPY PRN INH WHEEZING AND SOB; Start 09/01/18 at 09:00 EBENEZER RANKIN Sep 08, 2018 14:33
[2018-09-08 20:00] VITALS: BP 142/74; PULSE 63; RESP 19
[2018-09-08] MEDS: QUETIAPINE 100 MG TAB PO SCH (20:47)
[2018-09-09] MEDS: ALBUTEROL/IPRATROPIUM (NEB) 3 ML AMP HHN SCH ×6 (01:00→21:00)
[2018-09-09 02:04] VITALS: BP 144/84; PULSE 63; RESP 17
[2018-09-09 08:00] VITALS: BP 151/82; RESP 18
[2018-09-09] MEDS: QUETIAPINE 25 MG TAB PO SCH (08:18)
[2018-09-09] MEDS: BENAZEPRIL 10 MG TAB PO SCH (08:18)
[2018-09-09] MEDS: ENOXAPARIN 30 MG/0.3 ML SYG SC SCH (08:19)
--- NOTE | 2018-09-09 13:55 | PN ---
Date/Time of Note Date/Time of Note DATE: 09/09/18 TIME: 13:54 Assessment/Plan VTE Prophylaxis Risk score (from Nsg)>0 risk: 2 Pharmacological prophylaxis: NA/contraindicated Pharm contraindication: low risk/ambulating Lines/Catheters IV Catheter Type (from Nrsg): Saline Lock Assessment/Plan Hospital Course 68 yo male with schizophrenia and COPD who presents for unclear reasons, seems he was kicked out of his boarding care facility and then had a choking fit for which EMS was called. He was slightly hypoxic with diffuse wheezing on exam suggestive of COPD exacerbation, now resolved. Now awaiting placement options COPD: - Breathing comfortably now - Continue bronchodilators NSTEMI: - This seems like a type II [place], no chest pain and EKG is not consistent with acute ischemia - Cardiology consulted - TTE with normal EF Schizophrenia: - Seroquel 50 mg QAM, 100 QPM' Hypertension: - Continue current meds Discharge plan per case management. Requires placement in NH Subjective 24 Hr Interval Summary Constitutional: no complaints Exam/Review of Systems Exam Vitals Vital Signs Date Temp Pulse Resp B/P (MAP) Pulse Ox O2 O2 Flow FiO2 Time Delivery Rate 09/09/18 97.9 18 151/82 92 Room Air 08:00 (105) 09/09/18 63 02:04 09/08/18 21 21:13 Constitutional: alert Respiratory: clear to auscultation Cardiovascular: regular rate and rhythm Gastrointestinal: soft Musculoskeletal: nl extremities to inspection Medications Medication Current Medications IV Flush (NS 3 ml) 3 ml PER PROTOCOL IV ; Start 08/28/18 at 14:00 Acetaminophen/ Hydrocodone Bitart ([place] (5/325)) 2 tab Q6H PRN PO .SEVERE PAIN 7-10 Last administered on 09/04/18at 18:41; Admin Dose 2 TAB; Start 08/28/18 at 14:00 Enoxaparin Sodium (Lovenox) 30 mg DAILY SC Last administered on 09/09/18at 08:19; Admin Dose 30 MG; Start 08/29/18 at 09:00 Albuterol/ Ipratropium (Duoneb) 3 ml Q4H RESP THERAPY HHN Last administered on 09/02/18at 08:18; Admin Dose 3 ML; Start 08/28/18 at 17:00 Lorazepam (Ativan) 1 mg Q8H PRN IV agitation Last administered on 09/07/18 20:18; Admin Dose 1 MG; Start 08/28/18 at 16:30 Quetiapine Fumarate (Seroquel) 50 mg DAILY PO Last administered on 09/09/18at 08:18; Admin Dose 50 MG; Start 08/29/18 at 10:00 Quetiapine Fumarate (Seroquel) 100 mg HS PO Last administered on 09/08/18at 20:47; Admin Dose 100 MG; Start 08/29/18 at 21:00 Benazepril HCl (Lotensin) 10 mg DAILY PO Last administered on 09/09/18 08:18; Admin Dose 10 MG; Start 08/30/18 at 09:00 Magnesium Hydroxide (Milk Of Mag) 30 ml Q24H PRN PO CONSTIPATION; Start 08/29/18 at 17:00 Hydroxyzine Pamoate (Vistaril) 50 mg Q6H PRN PO ITCHING; Start 08/29/18 at 18:30 Albuterol (Ventolin Hfa) 2 puff Q6H RESP THERAPY PRN INH WHEEZING AND SOB; Start 09/01/18 at 09:00 Albuterol (Ventolin Hfa) 2 puff Q6H RESP THERAPY PRN INH WHEEZING AND SOB; Start 09/01/18 at 09:00 EBENEZER RANKIN Sep 09, 2018 13:55
[2018-09-09 14:00] VITALS: BP 163/88; PULSE 68; RESP 18
[2018-09-09 19:53] VITALS: BP 128/76; PULSE 78; RESP 20
[2018-09-09] MEDS: HYDROCODONE/APAP (5/325) TAB PO PRN (19:59)
[2018-09-09] MEDS: QUETIAPINE 100 MG TAB PO SCH (20:00)
[2018-09-10] MEDS: ALBUTEROL/IPRATROPIUM (NEB) 3 ML AMP HHN SCH ×6 (01:00→21:00)
[2018-09-10 01:36] VITALS: BP 134/78; PULSE 84; RESP 20
[2018-09-10 07:48] VITALS: BP 151/91; PULSE 60; RESP 19
[2018-09-10] MEDS: ENOXAPARIN 30 MG/0.3 ML SYG SC SCH (09:09)
[2018-09-10] MEDS: QUETIAPINE 25 MG TAB PO SCH (09:09)
[2018-09-10] MEDS: BENAZEPRIL 10 MG TAB PO SCH (09:10)
[2018-09-10 13:55] VITALS: BP 134/89; PULSE 116; RESP 18
--- NOTE | 2018-09-10 14:46 | PN ---
Date/Time of Note Date/Time of Note DATE: 09/10/18 TIME: 14:46 Assessment/Plan VTE Prophylaxis Risk score (from Nsg)>0 risk: 2 Pharmacological prophylaxis: NA/contraindicated Pharm contraindication: low risk/ambulating Lines/Catheters IV Catheter Type (from Nrsg): Saline Lock Assessment/Plan Hospital Course 68 yo male with schizophrenia and COPD who presents for unclear reasons, seems he was kicked out of his boarding care facility and then had a choking fit for which EMS was called. He was slightly hypoxic with diffuse wheezing on exam suggestive of COPD exacerbation, now resolved. Now awaiting placement options COPD: - Breathing comfortably now - Continue bronchodilators NSTEMI: - This seems like a type II [place], no chest pain and EKG is not consistent with acute ischemia - Cardiology consulted - TTE with normal EF Schizophrenia: - Seroquel 50 mg QAM, 100 QPM' Hypertension: - Continue current meds Discharge plan per case management. Requires placement in NH Subjective 24 Hr Interval Summary Constitutional: disoriented Exam/Review of Systems Exam Vitals Vital Signs Date Temp Pulse Resp B/P (MAP) Pulse Ox O2 O2 Flow FiO2 Time Delivery Rate 09/10/18 97.8 116 18 134/89 92 13:55 (104) 09/10/18 Room Air 01:36 09/08/18 21 21:13 Intake and Output 09/09/18 09/09/18 09/10/18 1515:00 23:00 07:00 IntakeIntake Total 760 ml 480 ml BalanceBalance 760 ml 480 ml Psych: confusion Respiratory: clear to auscultation Cardiovascular: regular rate and rhythm Gastrointestinal: soft; No distended Musculoskeletal: nl extremities to inspection Medications Medication Current Medications IV Flush (NS 3 ml) 3 ml PER PROTOCOL IV ; Start 08/28/18 at 14:00 Acetaminophen/ Hydrocodone Bitart ([place] (5/325)) 2 tab Q6H PRN PO .SEVERE PAIN 7-10 Last administered on 09/09/18at 19:59; Admin Dose 2 TAB; Start 08/28/18 at 14:00 Enoxaparin Sodium (Lovenox) 30 mg DAILY SC Last administered on 09/10/18at 09:0 9; Admin Dose 30 MG; Start 08/29/18 at 09:00 Albuterol/ Ipratropium (Duoneb) 3 ml Q4H RESP THERAPY HHN Last administered on 09/02/18 08:18; Admin Dose 3 ML; Start 08/28/18 at 17:00 Lorazepam (Ativan) 1 mg Q8H PRN IV agitation Last administered on 09/07/18 20:18; Admin Dose 1 MG; Start 08/28/18 at 16:30 Quetiapine Fumarate (Seroquel) 50 mg DAILY PO Last administered on 09/10/18 09:09; Admin Dose 50 MG; Start 08/29/18 at 10:00 Quetiapine Fumarate (Seroquel) 100 mg HS PO Last administered on 09/09/18 20:00; Admin Dose 100 MG; Start 08/29/18 at 21:00 Benazepril HCl (Lotensin) 10 mg DAILY PO Last administered on 09/10/18 09:10; Admin Dose 10 MG; Start 08/30/18 at 09:00 Magnesium Hydroxide (Milk Of Mag) 30 ml Q24H PRN PO CONSTIPATION; Start 08/29/18 at 17:00 Hydroxyzine Pamoate (Vistaril) 50 mg Q6H PRN PO ITCHING; Start 08/29/18 at 18:30 Albuterol (Ventolin Hfa) 2 puff Q6H RESP THERAPY PRN INH WHEEZING AND SOB; Start 09/01/18 at 09:00 Albuterol (Ventolin Hfa) 2 puff Q6H RESP THERAPY PRN INH WHEEZING AND SOB; Start 09/01/18 at 09:00 EBENEZER RANKIN Sep 10, 2018 14:46
--- NOTE | 2018-09-10 16:36 | PSY ---
Date/Time of Note Date/Time of Note DATE: 09/10/18 TIME: 19:32 Psychiatric Subjective Eval Consent Pt consented to telemedicine: Yes Subjective Evaluation Patient location: inpatient Chief Complaint: had a choking episode now better 02 sat 97% History of present illness HPI: 68 yo male with ho schizophrenia, came in for ND, has been very agitated, aggressive disorganized. MD attempted to speak with pt. He was agitated, very disorganized, can only answer yes or no questions. Other than that, completely disorganized, nearly word salad. Denies drug use or si. Past Psych Hx; + ho psych admits denies ho suicide attempts PMHx: COPD, CAD Meds: seroquel 50mg/100mg nkda MSE: disheveled, psychomotor agitation, cooperative, speaks quickly and loudly, can answer very short questions but becomes very disorganized and completely irrleevant with any open ended question, denies si IMp: 68 yo male severely disabled [id number] psych admit add zyprexa 5mg po bid For moderate agitation Zyprexa 5mg po prn For severe agitation chlorpromazine 25mg im prn 1:1 while inpatient medicine Hospitalization: other Medical history Problems Medical Problems: (1) Choking episode Status: Acute (2) Encephalopathy chronic Status: Acute (3) Non-ST elevation myocardial infarction (NSTEMI) Status: Acute Allergies: Coded Allergies: No Known Allergy (Unverified , 08/28/18) Social History Marital status: single DPA/Conservatorship: No Assessment and Plan Recommendation/Plan Multiple antipsychotics: Yes Discharge Disposition: Psychiatric inpatient Legal Status: Place involuntary hold LOLY IQBAL Sep 10, 2018 16:36
[2018-09-10 20:00] VITALS: BP 157/82; PULSE 67; RESP 19
[2018-09-10] MEDS: QUETIAPINE 100 MG TAB PO SCH (21:37)
[2018-09-10] MEDS: LORAZEPAM 2 MG INJ IV PRN (21:38)
[2018-09-11] MEDS: ALBUTEROL/IPRATROPIUM (NEB) 3 ML AMP HHN SCH ×6 (00:33→21:00)
[2018-09-11] MEDS: QUETIAPINE 25 MG TAB PO SCH (09:16)
[2018-09-11] MEDS: BENAZEPRIL 10 MG TAB PO SCH (09:17)
[2018-09-11] MEDS: ENOXAPARIN 30 MG/0.3 ML SYG SC SCH (09:20)
--- NOTE | 2018-09-11 12:05 | PN ---
Date/Time of Note Date/Time of Note DATE: 09/11/18 TIME: 12:03 Assessment/Plan VTE Prophylaxis Risk score (from Nsg)>0 risk: 3 Pharmacological prophylaxis: NA/contraindicated Pharm contraindication: low risk/ambulating Lines/Catheters IV Catheter Type (from Nrsg): Peripheral IV Assessment/Plan Hospital Course 68 yo male with schizophrenia and COPD who presents for unclear reasons, seems he was kicked out of his boarding care facility and then had a choking fit for which EMS was called. He was slightly hypoxic with diffuse wheezing on exam suggestive of COPD exacerbation, now resolved. Now awaiting placement options COPD: - Breathing comfortably now - Continue bronchodilators NSTEMI: - This seems like a type II [place], no chest pain and EKG is not consistent with acute ischemia - Cardiology consulted - TTE with normal EF Schizophrenia: - Seroquel 50 mg QAM, 100 QPM -Patient did have an episode of hostility last night, psychiatry consultation appreciated, reevaluation today Hypertension: - Continue current meds Discharge plan per case management. Requires placement in boarding care versus facility Subjective 24 Hr Interval Summary Constitutional: disoriented Exam/Review of Systems Exam Vitals Vital Signs Date Temp Pulse Resp B/P (MAP) Pulse Ox O2 O2 Flow FiO2 Time Delivery Rate 09/10/18 97.3 67 19 157/82 93 20:00 (107) 09/10/18 Room Air 01:36 09/08/18 21 21:13 Intake and Output 09/10/18 09/10/18 09/11/18 1515:00 23:00 07:00 IntakeIntake Total 1080 ml BalanceBalance 1080 ml Psych: confusion Respiratory: clear to auscultation Cardiovascular: regular rate and rhythm Gastrointestinal: soft; No distended Musculoskeletal: nl extremities to inspection Medications Medication Current Medications IV Flush (NS 3 ml) 3 ml PER PROTOCOL IV ; Start 08/28/18 at 14:00 Acetaminophen/ Hydrocodone Bitart ([place] (5/325)) 2 tab Q6H PRN PO .SEVERE PAIN 7-10 Last administered on 09/09/18at 19:59; Admin Dose 2 TAB; Start 08/28/18 at 14:00 Enoxaparin Sodium (Lovenox) 30 mg DAILY SC Last administered on 09/11/18at 09:20 ; Admin Dose 30 MG; Start 08/29/18 at 09:00 Albuterol/ Ipratropium (Duoneb) 3 ml Q4H RESP THERAPY HHN Last administered on 09/02/18 08:18; Admin Dose 3 ML; Start 08/28/18 at 17:00 Lorazepam (Ativan) 1 mg Q8H PRN IV agitation Last administered on 09/10/18at 21:38; Admin Dose 1 MG; Start 08/28/18 at 16:30 Quetiapine Fumarate (Seroquel) 50 mg DAILY PO Last administered on 09/11/18 09:16; Admin Dose 50 MG; Start 08/29/18 at 10:00 Quetiapine Fumarate (Seroquel) 100 mg HS PO Last administered on 09/10/18at 2 1:37; Admin Dose 100 MG; Start 08/29/18 at 21:00 Benazepril HCl (Lotensin) 10 mg DAILY PO Last administered on 09/11/18 09:17; Admin Dose 10 MG; Start 08/30/18 at 09:00 Magnesium Hydroxide (Milk Of Mag) 30 ml Q24H PRN PO CONSTIPATION; Start 08/29/18 at 17:00 Hydroxyzine Pamoate (Vistaril) 50 mg Q6H PRN PO ITCHING; Start 08/29/18 at 18:30 Albuterol (Ventolin Hfa) 2 puff Q6H RESP THERAPY PRN INH WHEEZING AND SOB; Start 09/01/18 at 09:00 Albuterol (Ventolin Hfa) 2 puff Q6H RESP THERAPY PRN INH WHEEZING AND SOB; Start 09/01/18 at 09:00 EBENEZER RANKIN Sep 11, 2018 12:04
--- NOTE | 2018-09-11 13:45 | PSY ---
Date/Time of Note Date/Time of Note DATE: 09/11/18 TIME: 16:43 Psychiatric Subjective Eval Consent Pt consented to telemedicine: Yes Subjective Evaluation Patient location: emergency Chief Complaint: had a choking episode now better 02 sat 97% History of present illness HPI: 68 yo male with ho schizophrenia, came in for [place], COPD exacerbation, choking episode has been very agitated, aggressive disorganized. MD attempted to speak with pt. Today was less disorganized but still agitated, speaking very loudly, somewhat disorganized. No change in psych meds. Denies drug use or si. Past Psych Hx; + ho psych admits denies ho suicide attempts PMHx: COPD, CAD Meds: seroquel 50mg/100mg nkda MSE: disheveled, psychomotor agitation, cooperative, speaks quickly and loudly, can answer very short questions but otherwise disorganized, denies si IMp: 68 yo male severely disabled 5150 for now, and obtain parallel hx to better understand his baseline add zyprexa 5mg po bid For moderate agitation Zyprexa 5mg po prn For severe agitation chlorpromazine 25mg im prn Hospitalization: other Medical history Problems Medical Problems: (1) Choking episode Status: Acute (2) Encephalopathy chronic Status: Acute (3) Non-ST elevation myocardial infarction (NSTEMI) Status: Acute Allergies: Coded Allergies: No Known Allergy (Unverified , 08/28/18) Social History Marital status: single DPA/Conservatorship: No Assessment and Plan Recommendation/Plan Multiple antipsychotics: No Discharge Disposition: Psychiatric inpatient Legal Status: Place involuntary [facility] LOLY IQBAL Sep 11, 2018 13:45
[2018-09-11 14:25] VITALS: BP 108/76; PULSE 126; RESP 18
[2018-09-11 15:09] VITALS: PULSE 77
[2018-09-11] MEDS: LORAZEPAM 2 MG INJ IV PRN (18:48)
[2018-09-11 19:43] VITALS: BP 135/88; PULSE 76; RESP 20
[2018-09-11] MEDS: QUETIAPINE 100 MG TAB PO SCH (21:04)
[2018-09-12] MEDS: ALBUTEROL/IPRATROPIUM (NEB) 3 ML AMP HHN SCH ×6 (01:00→20:19)
[2018-09-12 01:47] VITALS: BP 118/77; PULSE 80; RESP 20
[2018-09-12 08:07] VITALS: BP 132/75; PULSE 60; RESP 16
[2018-09-12] MEDS: BENAZEPRIL 10 MG TAB PO SCH (08:56)
[2018-09-12] MEDS: QUETIAPINE 25 MG TAB PO SCH (08:56)
[2018-09-12] MEDS: ENOXAPARIN 30 MG/0.3 ML SYG SC SCH (08:58)
--- NOTE | 2018-09-12 11:40 | PN ---
Date/Time of Note Date/Time of Note DATE: 09/12/18 TIME: 11:40 Assessment/Plan VTE Prophylaxis Risk score (from Nsg)>0 risk: 2 Pharmacological prophylaxis: NA/contraindicated Pharm contraindication: low risk/ambulating Lines/Catheters IV Catheter Type (from Nrsg): Peripheral IV Assessment/Plan Hospital Course 68 yo male with schizophrenia and COPD who presents for unclear reasons, seems he was kicked out of his boarding care facility and then had a choking fit for which EMS was called. He was slightly hypoxic with diffuse wheezing on exam suggestive of COPD exacerbation, now resolved. Now awaiting placement options COPD: - Breathing comfortably now - Continue bronchodilators NSTEMI: - This seems like a type II [place], no chest pain and EKG is not consistent with acute ischemia - Cardiology consulted - TTE with normal EF Schizophrenia: - Seroquel 50 mg QAM, 100 QPM -Patient did have an episode of hostility last night, psychiatry consultation appreciated, reevaluation today Hypertension: - Continue current meds Discharge plan per case management. Requires placement in boarding care versus facility Subjective 24 Hr Interval Summary Constitutional: disoriented Exam/Review of Systems Exam Vitals Vital Signs Date Temp Pulse Resp B/P (MAP) Pulse Ox O2 O2 Flow FiO2 Time Delivery Rate 09/12/18 97.8 60 16 132/75 91 Room Air 08:07 (94) 09/08/18 21 21:13 Intake and Output 09/11/18 09/11/18 09/12/18 1515:00 23:00 07:00 IntakeIntake Total 500 ml 800 ml BalanceBalance 500 ml 800 ml Psych: confusion Respiratory: clear to auscultation Cardiovascular: regular rate and rhythm Gastrointestinal: soft; No distended Musculoskeletal: nl extremities to inspection Medications Medication Current Medications IV Flush (NS 3 ml) 3 ml PER PROTOCOL IV ; Start 08/28/18 at 14:00 Acetaminophen/ Hydrocodone Bitart ([place] (5/325)) 2 tab Q6H PRN PO .SEVERE PAIN 7-10 Last administered on 09/09/18at 19:59; Admin Dose 2 TAB; Start 08/28/18 at 14:00 Enoxaparin Sodium (Lovenox) 30 mg DAILY SC Last administered on 09/12/18at 08:58; Admin Dose 30 MG; Start 08/29/18 at 09:00 Albuterol/ Ipratropium (Duoneb) 3 ml Q4H RESP THERAPY HHN Last administered on 09/02/18 08:18; Admin Dose 3 ML; Start 08/28/18 at 17:00 Lorazepam (Ativan) 1 mg Q8H PRN IV agitation Last administered on 09/11/18 18:48; Admin Dose 1 MG; Start 08/28/18 at 16:30 Quetiapine Fumarate (Seroquel) 50 mg DAILY PO Last administered on 09/12/18 08:56; Admin Dose 50 MG; Start 08/29/18 at 10:00 Quetiapine Fumarate (Seroquel) 100 mg HS PO Last administered on 09/11/18 21:04; Admin Dose 100 MG; Start 08/29/18 at 21:00 Benazepril HCl (Lotensin) 10 mg DAILY PO Last administered on 09/12/18 08:56; Admin Dose 10 MG; Start 08/30/18 at 09:00 Magnesium Hydroxide (Milk Of Mag) 30 ml Q24H PRN PO CONSTIPATION; Start 08/29/18 at 17:00 Hydroxyzine Pamoate (Vistaril) 50 mg Q6H PRN PO ITCHING; Start 08/29/18 at 18:30 Albuterol (Ventolin Hfa) 2 puff Q6H RESP THERAPY PRN INH WHEEZING AND SOB; Start 09/01/18 at 09:00 Albuterol (Ventolin Hfa) 2 puff Q6H RESP THERAPY PRN INH WHEEZING AND SOB; Start 09/01/18 at 09:00 EBENEZER RANKIN Sep 12, 2018 11:40
[2018-09-12 20:00] VITALS: BP 141/83; PULSE 74; RESP 17
[2018-09-12] MEDS: QUETIAPINE 100 MG TAB PO SCH (20:15)
[2018-09-13] MEDS: ALBUTEROL/IPRATROPIUM (NEB) 3 ML AMP HHN SCH ×5 (01:00→20:18)
[2018-09-13 08:30] VITALS: BP 170/90; PULSE 59; RESP 18
[2018-09-13] MEDS: QUETIAPINE 25 MG TAB PO SCH (09:03)
[2018-09-13] MEDS: BENAZEPRIL 10 MG TAB PO SCH (09:05)
[2018-09-13] MEDS: ENOXAPARIN 30 MG/0.3 ML SYG SC SCH (09:06)
[2018-09-13 09:14] VITALS: BP 170/90; PULSE 59; RESP 17
[2018-09-13] MEDS ORDERED: LORAZEPAM 1 MG TAB PO PRN (10:00)
--- NOTE | 2018-09-13 16:30 | PN ---
Date/Time of Note Date/Time of Note DATE: 09/13/18 TIME: 16:29 Assessment/Plan VTE Prophylaxis Risk score (from Nsg)>0 risk: 2 Pharmacological prophylaxis: NA/contraindicated Pharm contraindication: other Lines/Catheters IV Catheter Type (from Nrsg): Saline Lock Assessment/Plan Hospital Course 68 yo male with schizophrenia and COPD who presents for unclear reasons, seems he was kicked out of his boarding care facility and then had a choking fit for which EMS was called. He was slightly hypoxic with diffuse wheezing on exam suggestive of COPD exacerbation, now resolved. Now awaiting placement options COPD: - Breathing comfortably now - Continue bronchodilators NSTEMI: - This seems like a type II [place], no chest pain and EKG is not consistent with acute ischemia - Cardiology consulted - TTE with normal EF Schizophrenia: - Seroquel 50 mg QAM, 100 QPM -Patient did have an episode of hostility last night, psychiatry consultation appreciated, reevaluation today Hypertension: - Continue current meds Discharge plan per case management. Requires placement in boarding care versus facility Subjective 24 Hr Interval Summary Constitutional: disoriented Exam/Review of Systems Exam Vitals Vital Signs Date Temp Pulse Resp B/P (MAP) Pulse Ox O2 O2 Flow FiO2 Time Delivery Rate 09/13/18 59 17 170/90 92 Room Air 09:14 (116) 09/13/18 98.5 08:30 Intake and Output 09/12/18 09/12/18 09/13/18 1414:59 22:59 06:59 IntakeIntake Total 120 ml 470 ml BalanceBalance 120 ml 470 ml Psych: confusion Respiratory: clear to auscultation Cardiovascular: regular rate and rhythm Gastrointestinal: soft; No distended Musculoskeletal: nl extremities to inspection Medications Medication Current Medications IV Flush (NS 3 ml) 3 ml PER PROTOCOL IV ; Start 08/28/18 at 14:00 Acetaminophen/ Hydrocodone Bitart ([place] (5/325)) 2 tab Q6H PRN PO .SEVERE PAIN 7-10 Last administered on 09/09/18at 19:59; Admin Dose 2 TAB; Start 08/28/18 at 14:00 Enoxaparin Sodium (Lovenox) 30 mg DAILY SC Last administered on 09/13/18at 09:06; Admin Dose 30 MG; Start 08/29/18 at 09:00 Albuterol/ Ipratropium (Duoneb) 3 ml Q4H RESP THERAPY HHN Last administered on 09/13/18at 08:24; Admin Dose 3 ML; Start 08/28/18 at 17:00 Quetiapine Fumarate (Seroquel) 50 mg DAILY PO Last administered on 09/13/18 09:03; Admin Dose 50 MG; Start 08/29/18 at 10:00 Quetiapine Fumarate (Seroquel) 100 mg HS PO Last administered on 09/12/18at 20:15; Admin Dose 100 MG; Start 08/29/18 at 21:00 Benazepril HCl (Lotensin) 10 mg DAILY PO Last administered on 09/13/18 09:05; Admin Dose 10 MG; Start 08/30/18 at 09:00 Magnesium Hydroxide (Milk Of Mag) 30 ml Q24H PRN PO CONSTIPATION; Start 08/29/18 at 17:00 Hydroxyzine Pamoate (Vistaril) 50 mg Q6H PRN PO ITCHING; Start 08/29/18 at 18:30 Albuterol (Ventolin Hfa) 2 puff Q6H RESP THERAPY PRN INH WHEEZING AND SOB; Start 09/01/18 at 09:00 Albuterol (Ventolin Hfa) 2 puff Q6H RESP THERAPY PRN INH WHEEZING AND SOB; Start 09/01/18 at 09:00 Lorazepam (Ativan) 1 mg Q8H PRN PO ANXIETY; Start 09/13/18 at 10:00 EBENEZER RANKIN Sep 13, 2018 16:30
[2018-09-13 19:15] VITALS: BP 121/90; PULSE 67; RESP 18
[2018-09-13] MEDS: QUETIAPINE 100 MG TAB PO SCH (21:21)
[2018-09-14] MEDS: ALBUTEROL/IPRATROPIUM (NEB) 3 ML AMP HHN SCH ×5 (01:00→20:01)
[2018-09-14] MEDS: QUETIAPINE 25 MG TAB PO SCH (08:38)
[2018-09-14] MEDS: ENOXAPARIN 30 MG/0.3 ML SYG SC SCH (08:39)
[2018-09-14] MEDS: BENAZEPRIL 10 MG TAB PO SCH (08:39)
[2018-09-14 08:42] VITALS: BP 153/72; PULSE 85; RESP 18
[2018-09-14 15:01] VITALS: BP 134/73; PULSE 60; RESP 17
--- NOTE | 2018-09-14 15:53 | PN ---
Date/Time of Note Date/Time of Note DATE: 09/14/18 TIME: 15:53 Assessment/Plan VTE Prophylaxis Risk score (from Nsg)>0 risk: 2 SCD applied (from Nsg): Yes Pharmacological prophylaxis: heparin Lines/Catheters IV Catheter Type (from Nrsg): Saline Lock Assessment/Plan Hospital Course 68 yo male with schizophrenia and COPD who presents for unclear reasons, seems he was kicked out of his boarding care facility and then had a choking fit for which EMS was called. He was slightly hypoxic with diffuse wheezing on exam suggestive of COPD exacerbation, now resolved. Now awaiting placement options Schizophrenia: - Seroquel 50 mg QAM, 100 QPM' - Management per psychiatry COPD: - Breathing comfortably now - Continue bronchodilators NSTEMI: - This seems like a type II [place], no chest pain and EKG is not consistent with acute ischemia - Cardiology consulted - TTE with normal EF Hypertension: - Continue current meds Discharge plan per case management and psychiatry Subjective 24 Hr Interval Summary Free Text/Dictation With sitter per psychiatry Behavior is very calm Exam/Review of Systems Exam Vitals Vital Signs Date Temp Pulse Resp B/P (MAP) Pulse Ox O2 O2 Flow FiO2 Time Delivery Rate 09/14/18 98.0 60 17 134/73 93 Room Air 15:01 (93) Intake and Output 09/13/18 09/13/18 09/14/18 1515:00 23:00 07:00 IntakeIntake Total 840 ml 720 ml BalanceBalance 840 ml 720 ml Constitutional: alert, oriented, well developed Psych: no complaints, nl mood/affect Head: normocephalic, atraumatic Eyes: nl conjunctiva, EOMI, nl lids, nl sclera, PERRL ENMT: nl external ears & nose, nl lips & teeth, nl nasal mucosa & septum Neck: supple, non-tender Respiratory: clear to auscultation, normal air movement Cardiovascular: regular rate and rhythm, nl pulses Gastrointestinal: soft, nl liver, spleen, non-tender Musculoskeletal: nl extremities to inspection, nl gait and stance Extremities: normal pulses Neurological: OPAL POLISHER II-XII intact, nl mental status, nl speech, nl strength Skin: nl turgor; No rash or lesions Lymph: nl lymph nodes Medications Medication Current Medications IV Flush (NS 3 ml) 3 ml PER PROTOCOL IV ; Start 08/28/18 at 14:00 Acetaminophen/ Hydrocodone Bitart ([place] (5/325)) 2 tab Q6H PRN PO .SEVERE PAIN 7-10 Last administered on 09/09/18 19:59; Admin Dose 2 TAB; Start 08/28/18 at 14:00 Enoxaparin Sodium (Lovenox) 30 mg DAILY SC Last administered on 09/14/18 08:39; Admin Dose 30 MG; Start 08/29/18 at 09:00 Albuterol/ Ipratropium (Duoneb) 3 ml Q4H RESP THERAPY HHN Last administered on 09/13/18 08:24; Admin Dose 3 ML; Start 08/28/18 at 17:00 Quetiapine Fumarate (Seroquel) 50 mg DAILY PO Last administered on 09/14/18 08:38; Admin Dose 50 MG; Start 08/29/18 at 10:00 Quetiapine Fumarate (Seroquel) 100 mg HS PO Last administered on 09/13/18 21:21; Admin Dose 100 MG; Start 08/29/18 at 21:00 Benazepril HCl (Lotensin) 10 mg DAILY PO Last administered on 09/14/18 08:39; Admin Dose 10 MG; Start 08/30/18 at 09:00 Magnesium Hydroxide (Milk Of Mag) 30 ml Q24H PRN PO CONSTIPATION; Start 08/29/18 at 17:00 Hydroxyzine Pamoate (Vistaril) 50 mg Q6H PRN PO ITCHING; Start 08/29/18 at 18:30 Albuterol (Ventolin Hfa) 2 puff Q6H RESP THERAPY PRN INH WHEEZING AND SOB; Start 09/01/18 at 09:00 Albuterol (Ventolin Hfa) 2 puff Q6H RESP THERAPY PRN INH WHEEZING AND SOB; Start 09/01/18 at 09:00 Lorazepam (Ativan) 1 mg Q8H PRN PO ANXIETY; Start 09/13/18 at 10:00 LASHAWN LOPEZ MD Sep 14, 2018 15:53
[2018-09-14 19:50] VITALS: BP 133/85; PULSE 81; RESP 20
[2018-09-14] MEDS: QUETIAPINE 100 MG TAB PO SCH (20:58)
[2018-09-15] MEDS: ALBUTEROL/IPRATROPIUM (NEB) 3 ML AMP HHN SCH ×5 (00:08→12:52)
[2018-09-15 01:38] VITALS: BP 124/78; PULSE 78; RESP 20
[2018-09-15 08:00] VITALS: BP 118/77; PULSE 73; RESP 18
[2018-09-15] MEDS: BENAZEPRIL 10 MG TAB PO SCH (09:09)
[2018-09-15] MEDS: QUETIAPINE 25 MG TAB PO SCH (09:09)
[2018-09-15] MEDS: ENOXAPARIN 30 MG/0.3 ML SYG SC SCH (09:11)
[2018-09-15 14:00] VITALS: BP 121/72; PULSE 65; RESP 16
--- NOTE | 2018-09-15 16:33 | DS ---
Date/Time of Note Date/Time of Note DATE: 09/15/18 TIME: 16:31 Discharge Summary Admission/Discharge Info Admit Date/Time Aug 28, 2018 at 12:57 Discharge Date/Time Discharge Diagnosis COPD exacerbation Schizophrenia Patient Condition: Stable Hx of Present Illness 68 yo male with ho schizophrenia and COPD who presents for unclear reasons Patient with dysarthria and very difficult to understand. From what I am able to hear he says he was in a skilled nursing who kicked him out today for taking "his pills" which he says was seroquel. From documentation provided, he was outside of the facility and had a choking fit so EMS was called. The patient denies chocking and has no chest pain. He does say he feel short of breath from his emphysema Hospital Course 68 yo male with schizophrenia and COPD who presents for unclear reasons, seems he was kicked out of his boarding care facility and then had a choking fit for which EMS was called. He was slightly hypoxic with diffuse wheezing on exam suggestive of COPD exacerbation. He was treated with nebulizers and steroids and respiratory statu s returned to baseline. His schizophrenia was managed by psychiatry with Seroquel 50 mg QAM, 100 QPM' He had a brief episode of agitation and telepyshc was called. They recommended 5150 hold. The patinet's behavior was then stable. He had no more episodes of agitation or behivioral disturbance. No signs of decopmensated psychiatric disease. Denied hallucinations or SI/HI. He was deemed safe for return back to his fpc Home Meds Reported Medications Hydroxyzine Pamoate* (Hydroxyzine Pamoate*) 50 Mg Capsule, 50 MG PO Q6H PRN for ITCHING, #30 CAP 08/28/18 Albuterol Sulfate* (Ventolin HFA*) 18 Gm Hfa.aer.ad, 2 PUFF INHALATION Q6H PRN for WHEEZING AND SOB, #1 INHALER 08/28/18 Acetaminophen* (Acetaminophen*) 650 Mg Tablet, 650 MG PO Q6H PRN for PAIN AND OR ELEVATED TEMP, #30 TAB 08/28/18 Magnesium Hydroxide* (Milk Of Magnesia*) 400 Mg/5 Ml Oral.susp, 30 ML PO Q24H PRN for CONSTIPATION, ML 08/28/18 Trazodone Hcl* (Trazodone Hcl*) 50 Mg Tablet, 50 MG PO QHS, #30 TAB 08/28/18 Simethicone* (Mylicon* Oral Drop) 40 Mg/0.6 Ml Drops, 30 MG PO Q2HWA PRN for DISTENSION/GAS/BLOATING, EA 08/28/18 Atorvastatin Calcium* (Atorvastatin Calcium*) 20 Mg Tablet, 20 MG PO QHS, #30 TAB 08/28/18 Metformin* (Glucophage*) 500 Mg Tab, 500 MG PO BID, #60 TAB 08/28/18 Aspirin* (Aspirin* EC) 81 Mg Tablet.dr, 81 MG PO DAILY, TAB 08/28/18 Benazepril Hcl* (Benazepril Hcl*) 10 Mg Tablet, 10 MG PO DAILY, #30 TAB HOLD IF SBP<110 OR HR<60 08/28/18 Escitalopram Oxalate* (Escitalopram Oxalate*) 5 Mg Tablet, 5 MG PO DAILY, #30 TAB 08/28/18 Primary Care Provider Care Physician No Primary LASHAWN LOPEZ MD Sep 15, 2018 16:33
[2018-09-15] MEDS ORDERED: BUDE6HFA INHALATION (16:45)
[2018-09-15 19:33] VITALS: BP 115/76; PULSE 69; RESP 17
== END 2018-09-15 19:50 | disposition home or self-care (01) | DRG 190 ==
LOC: E/R 08:39 → EDBD 08:39 → TEL 12:57 → 5EC 08-31 15:12
PROVIDERS: ADMIT Internal Medicine; ATTEND Internal Medicine
DX: J44.1 Chronic obstructive pulmonary disease with (acute) exacerbation (principal); I21.A1 Myocardial infarction type 2; G93.49 Other encephalopathy; G93.40 Encephalopathy, unspecified; T43.591A Poisoning by other antipsychotics and neuroleptics, accidental (unintentional), initial encounter; F20.9 Schizophrenia, unspecified; I10 Essential (primary) hypertension; R47.1 Dysarthria and anarthria; R09.02 Hypoxemia; R00.0 Tachycardia, unspecified
CPT/HCPCS: 36415; 70450; 71045; 80048; 80053; 80061; 83036; 83735; 84100; 84484; 85025; 85610; 85730; 87081; 90686; 92526; 92610; 93005; 93306; 94640; 94664; J0360; J1200; J1630; J1650; J2060; J7512

== ENCOUNTER 2018-11-29 13:51 | Emergency (ER) | payer MEDICARE, OTHER ==
[~2018-11-29] VITALS: Ht 180.3 cm; Wt 76.2 kg
[~2018-11-29 13:51] MED LIST: ALBU18HF INHALATION; BUDE6HFA INHALATION
[2018-11-29 14:01] VITALS: BP 182/129; PULSE 85; RESP 19; Ht 180.3 cm; Wt 76.2 kg
== END 2018-11-29 15:46 | disposition left against medical advice (07) ==
LOC: E/R 13:51
DX: Z53.21 Procedure and treatment not carried out due to patient leaving prior to being seen by health care provider (principal)